=== PATIENT | male | born 1980 | race Hispanic/Latino ===

== ENCOUNTER 2025-07-22 | Inpatient (IN) | payer OTHER ==
[~2025-07-22] VITALS: Ht 175.3 cm; Wt 117.9 kg
[2025-07-22] VITALS (13 sets, daily range): BP systolic 122–166; BP diastolic 33–94; PULSE 68–111; RESP 18–24; TEMP 98–98.7; O2SAT 96–99
[~2025-07-22] MED LIST: AMLO2.5T4 PO; ATOR-2 PO; DAPA5TAB PO; DIPH-1150 PO; LISI40TA15 PO; METF-446 PO; PIOG30TA70 PO; SEMA2PEN SQ
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
--- NOTE | 2025-07-22 00:15 | NUR ---
SEPSIS ALERT CALLED OVERHEAD TO ROOM 1; PT WITH TEMP OF 99.1 AND PULSE OF 117
[2025-07-22 00:38] LABS: CREATININE 1.0 mg/dL (0.5-1.3); GLOMERULAR FILTR. RATE CALC 93.0 mL/min (>90); GLUCOSE,RANDOM 290.0 mg/dL (70-105); SODIUM SERUM 137.0 mmol/L (136-145); UREA NITROGEN, BLOOD 21.0 mg/dL (7-18)
[2025-07-22] MEDS: ALBUTEROL 0.083% 2.5 MG/3 ML INH IH ONE (00:43)
[2025-07-22 01:00] LABS: IMMATURE GRANULOCYTE ABSOLUTE 0.04 K/uL (0-1); NUCLEATED RED BLOOD CELLS 0.0 % (0.0-0.19); PLATELET COUNT (AUTO) 416 K/uL (130-400); RED BLOOD CELL COUNT(AUTO) 4.18 MIL/uL (4.50-6.20); RED CELL DISTRIBUTION WIDTH 13.7 % (11.0-15.5); WHITE BLOOD COUNT (AUTO) 9.6 K/uL (4.8-10.8)
[2025-07-22 01:04] LABS: ABG BASE EXCESS 1.5 mmol/L (-2.0-3.0); ABG HCO3 25.2 mmol/L (21.0-28.0); ABG OXYGEN SATURATION 99.6 % (94.0-98.0); ABG PCO2 37 mmHg (35-48); ABG PH 7.452 (7.350-7.450); DEVICE COMMENT RR 4N; PO2, ARTERIAL BG 253.2 mmHg (83.0-108.0); TEMPERATURE, CELSIUS BG 37.0 CELSIUS (35.5-37.0); VENT MODE, BG NRB (ROOM AIR)
[2025-07-22] MEDS: ASPIRIN 325MG TAB PO ONE (01:17)
--- NOTE | 2025-07-22 01:37 | HMCIMG ---
EXAM: CR Chest, 1 view CLINICAL HISTORY: Shortness of breath. COMPARISON: None provided. FINDINGS: Mild perihilar vascular congestion bilaterally. Mildly blunted bilateral CP angles, concerning for small pleural effusion or pleural thickening. No pneumothorax. The cardiomediastinal silhouette is within normal limits. No acute osseous abnormality. IMPRESSION: Mild perihilar vascular congestion bilaterally. Mildly blunted bilateral CP angles, concerning for small pleural effusion or pleural thickening. /[place]
[2025-07-22] MEDS: AZITHROMYCIN 500MG+NS 250ML 250 ML IVPB STA (01:39)
[2025-07-22 01:57] LABS: APPEARANCE,URINE CLEAR (CLEAR); GLUCOSE, URINE (UA) >=1000 mg/dL (NEGATIVE); LEUKOCYTE ESTERASE ,URINE 25 Leu/uL (NEGATIVE); NITRATE,URINE NEGATIVE (NEGATIVE); OCCULT BLOOD,URINE LARGE (NEGATIVE)
[2025-07-22] MEDS ORDERED: GLUCAGON 1MG KIT 1 MG ML IM PRN (02:00)
[2025-07-22] MEDS ORDERED: LACTULOSE 20 GM/30 ML UDCUP PO PRN (02:00)
[2025-07-22] MEDS ORDERED: DEXTROSE 50%-WATER 50 ML DISP.SYRIN IV PRN (02:00)
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
[2025-07-22 02:20] LABS: INR 0.99 (0.85-1.15)
--- NOTE | 2025-07-22 02:57 | NUR ---
JOSE RAFAEL CAMACHO ([place]) SEEN PT AT BEDSIDE
--- NOTE | 2025-07-22 03:04 | EKG ---
[facility] Test Date: 2025-07-22 Test Time: 00:34:12 Pat Name: ADI MENON Department: [facility] Patient ID: [id number] Room: ED Gender: M Sprue Knocker: [id number] : 1980 Requested By: MATEUS PALMA Order Number: [id number] Reading MD: Oumar Camilo Measurements Intervals [place] Rate: 116 P: 69 ME: 149 QRS: 71 QRSD: 96 T: -38 QT: 339 QTc: 472 Interpretive Statements Sinus tachycardia Nonspecific repol abnormality, diffuse leads No previous ECG available for comparison Electronically Signed On 07-22-2025 13:41:26 CDT by Oumar Camilo Please click the below link to view image of tracing.
[2025-07-22] MEDS ORDERED: NITROGLYCERIN 0.4 MG SL TAB SL PRN (03:30)
[2025-07-22] MEDS ORDERED: BENZONATATE 100 MG CAPSULE PO PRN (03:30)
[2025-07-22] MEDS ORDERED: INSU3INS3 SQ (03:43)
[2025-07-22] MEDS ORDERED: INSU100I35 SQ (03:44)
--- NOTE | 2025-07-22 04:00 | NUR ---
MOVED PT TP ROOM 9, HANDED OVER TO YUNG
[2025-07-22] MEDS ORDERED: IOHEXOL-350 75 ML VIAL IV ONE (06:03)
--- NOTE | 2025-07-22 06:04 | NUR ---
JOSE RAFAEL CAMACHO CALLED ABOUT THE CTA. I HAVE TOLD HIM I HAVE WAITING FOR IT TO BE DONE AND GOT THE CONSENT READY SINCE THEN. APPARENTLY INITIAL ORDER WAS CANCELLED IN THE SYSTEM FOR NO APPARENT REASON. WILL REINFORCED CT, I MADE SLURRY MIXER PRETTY AWARE.
--- NOTE | 2025-07-22 06:15 | NUR ---
AM LABS SENT
[2025-07-22 06:58] LABS: LDL DIRECT 137.0 mg/dL (0-99)
--- NOTE | 2025-07-22 06:59 | HMCIMG ---
EXAM: CTA examination of the chest CLINICAL HISTORY: Contrast information is not available. TECHNIQUE: Thin collimated axial CTA images of the chest were obtained, with sagittal and coronal reformatted images also submitted. A CT scan is done according to ALARA (As Low as Reasonably Achievable). CONTRAST USED: Yes COMPARISON: None provided. FINDINGS: Moderate bilateral pleural effusion with adjacent lung atelectasis. Smooth interlobular septal thickening in the bilateral lower lobes, right middle lobe, and lingula. No lung nodules or mass lesions. No pericardial effusion. The heart size is within normal limits. Diffuse coronary artery calcifications. Mild atherosclerotic calcification of the aortic arch and descending thoracic aorta. No thoracic aortic aneurysm or dissection. No filling defect or pulmonary thromboembolism. No axillary, supraclavicular, or mediastinal lymphadenopathy. No focal thyroid abnormality. Limited views of the upper abdomen demonstrate no abnormality. No acute or suspicious osseous abnormality. IMPRESSION: Normal contrast opacification of the pulmonary vasculature. No obvious evidence of pulmonary embolism. Normal cardiac size. Diffuse coronary artery calcifications. Subtle atherosclerotic calcification of the aortic arch. Moderate bilateral pleural effusion with adjacent lung atelectasis. Smooth interlobular septal thickening in the bilateral lower lobes, right middle lobe, and lingula. No lung nodules or mass lesions. /[place]
--- NOTE | 2025-07-22 07:20 | HMCIMG ---
EXAM: US for Deep Venous Thrombosis, bilateral Lower Extremity. CLINICAL HISTORY: Leg Pain and Swelling TECHNIQUE: Real-time ultrasound scan of the veins of the bilateral lower extremity with color Doppler flow, spectral waveform analysis and compression. COMPARISON: None provided. FINDINGS: DEEP VEINS: The common femoral, superficial femoral, popliteal, and posterior tibial veins are echolucent and compressible. There is normal color Doppler flow throughout. The visualized calf veins appear patent. SOFT TISSUES: No popliteal fossa cyst or other abnormalities. Mild subcutaneous edema in the bilateral lower limbs. IMPRESSION: Subcutaneous edema in the bilateral lower limbs. No deep venous thrombosis is evident on bilateral lower extremity examination. /[place]
--- NOTE | 2025-07-22 08:30 | NUR ---
BLOOD GLUCOSE 154. DID NOT COVER DUE TO PATIENT BEING NPO AND TO AVOID HYPOGLICEMIA.
[2025-07-22 08:39] LABS: IMMATURE GRANULOCYTE ABSOLUTE 0.05 K/uL (0-1); NUCLEATED RED BLOOD CELLS 0.0 % (0.0-0.19); PLATELET COUNT (AUTO) 382 K/uL (130-400); RED BLOOD CELL COUNT(AUTO) 4.05 MIL/uL (4.50-6.20); RED CELL DISTRIBUTION WIDTH 13.8 % (11.0-15.5); WHITE BLOOD COUNT (AUTO) 9.7 K/uL (4.8-10.8)
[2025-07-22 08:52] LABS: INR 1.03 (0.85-1.15)
--- NOTE | 2025-07-22 09:00 | NUR ---
PLACED PATIENT IN A HOSPITAL BED.
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
--- NOTE | 2025-07-22 11:00 | NUR ---
WEIGHTED PATIENT 119.2 KG PER HEPARIN PROTOCOL. DID DOUBLE VERIFICATION AT BEDSIDE WITH MRS. CATHI PUENTE CHARGE NURSE. EDUCATED PATIENT ON NEW MEDICATION. PATIENT AND VERBALIZED UNDERSTANDING.
[2025-07-22] MEDS ORDERED: ALBUMIN (HUMAN) 25% 50 ML IV ONE (11:20)
--- NOTE | 2025-07-22 13:39 | HMCSR ---
APPROVED REPORT EXAM: Two-dimensional and M-mode echocardiogram with Doppler and color Doppler. INDICATION ICD: Non ST-elevation CT I21.4 2D Dimensions RVDd3.6 cmLVEF(%)42.9 (>50%)LVED Vol(simp.)142.5 mL IVSd1.1 (0.7-1.1cm)FS(%)21 %LVES Vol(simp.)80.8 mL LVDd5.4 (3.8-5.6cm)LA (2D)4.0 (1.6-4.0cm)LVEF(%, simp.)43 % PWd1.2 (0.7-1.1cm)Ao Root(2D)2.8 (2.0-3.7cm)LA ESV INDEX (BP)29.74 mL/m2 LVDs4.2 (2.5-4.0cm)LVOT diam2.6 (1.8-2.4cm) IVC diam2.8 cm Deformation Strain Apical 4-13.1 % Apical 2-11.2 % Apical 3-11.1 % Global Strain-11.8 % M-Mode Dimensions EPSS1.1 cm LA (MM)4.3 (1.6-4.0cm) Ao Root(MM)3.2 (2.0-3.7cm) Aortic Valve AoV Vmax1.6 m/Ryann Peak GR10.5 mmHgLVOT Vmax1.1 m/s AoV VTI0.3 mAo Mean GR6.1 mmHgLVOT VTI0.21 m ISSAC (VMAX)3.63 cm2AVA (VTI) 3.6 cm2 Mitral Valve MV E Ldng598.6 cm/sDECEL Rdjt727 ms P 1/2 T55 ms MVA (PHT)4.0 cm2 TDI E/E' Ifexnr99.0E/E' Zdxmxuh01.1 Medial E' Peak V11.75 cm/sLateral E' Peak V8.97 cm/s Pulmonary Valve PV Vmax1.1 m/sPV VTI0.24 mPV Mean GR3.0 mmHg PV Peak GR4.6 mmHg Left Ventricle The left ventricle is normal size. Mild anterior and anteroapical hypokinesis There is normal left ve ntricular wall thickness. LVEF is 45-50% E/A flow is fused. Right Ventricle The right ventricle is normal size. The right ventricular systolic function is normal. Atria The left atrium size is normal. The right atrium size is normal. Aortic Valve The aortic valve is normal in structure. No aortic regurgitation is present. There is no aortic valvu lar stenosis. Mitral Valve The mitral valve is normal in structure. Mitral regurgitation is mild. There is no mitral valve steno sis. Tricuspid Valve The tricuspid valve is normal in structure. There is no tricuspid valve regurgitation noted. Pulmonic Valve The pulmonary valve is normal in structure. There is no pulmonic valvular regurgitation. Great Vessels The aortic root is normal in size. The IVC is normal in size and collapses <50% with inspiration. Pericardium There is no pericardial effusion. Conclusion LVEF is 45-50% Mild anterior and anteroapical hypokinesis The aortic root is normal in size. There is no pericardial effusion.
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
--- NOTE | 2025-07-22 16:28 | NUR ---
VITAL SIGNS BEFORE TRANSFER: BLOOD PRESSURE 146/84 MMHG TEMPERATURE 98.6 PULSE 95 P/MIN OXYGEN SATURATION 95 % WITH NASAL CANULA @3 LITS RESPIRATION 16 P/MIN
[2025-07-22 17:45] LABS: INR 1.01 (0.85-1.15)
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
[2025-07-23] VITALS (14 sets, daily range): BP systolic 148–154; BP diastolic 81–91; PULSE 67–108; RESP 18–20; TEMP 97.1–99.2; O2SAT 92–99
[2025-07-23] MEDS: AZITHROMYCIN 500MG+NS 250ML 250 ML IVPB SCH (04:07)
[2025-07-23 06:18] LABS: IMMATURE GRANULOCYTE ABSOLUTE 0.07 K/uL (0-1); NUCLEATED RED BLOOD CELLS 0.0 % (0.0-0.19); PLATELET COUNT (AUTO) 395 K/uL (130-400); RED BLOOD CELL COUNT(AUTO) 3.77 MIL/uL (4.50-6.20); RED CELL DISTRIBUTION WIDTH 13.7 % (11.0-15.5); WHITE BLOOD COUNT (AUTO) 11.0 K/uL (4.8-10.8)
[2025-07-23 06:31] LABS: CREATININE 0.8 mg/dL (0.5-1.3); GLOMERULAR FILTR. RATE CALC 110.0 mL/min (>90); GLUCOSE,RANDOM 255.0 mg/dL (70-105); PHOSPHORUS 4.3 mg/dL (2.5-4.9); SODIUM SERUM 136.0 mmol/L (136-145); UREA NITROGEN, BLOOD 13.0 mg/dL (7-18)
--- NOTE | 2025-07-23 07:26 | EKG ---
[facility] Test Date: 2025-07-22 Test Time: 16:26:18 Pat Name: ADI MENON Department: [facility] Room: 220 1 Gender: M Applied Researcher: KIN BRIGGS [id number] : 1980 Requested By: JOSE RAFAEL BIGGS Order Number: [id number] Reading MD: Oumar Camilo Measurements Intervals Jay Rate: 98 P: 19 MN: 156 QRS: 49 QRSD: 98 T: -1 QT: 379 QTc: 484 Interpretive Statements Sinus rhythm Compared to ECG 07/22/2025 00:34:12 Sinus tachycardia no longer present Early repolarization no longer present Electronically Signed On 07-23-2025 16:38:00 CDT by Oumar Camilo Please click the below link to view image of tracing.
[2025-07-23] MEDS: ASPIRIN 81MG CHEW TAB PO SCH (09:08)
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
[2025-07-23] MEDS: PoTASSium chloRIDE 20MEQ ER 20 MEQ ERTAB PO ONE (21:07)
[2025-07-24] VITALS (13 sets, daily range): BP systolic 142–159; BP diastolic 77–89; PULSE 93–105; RESP 18–21; TEMP 98.2–100.5; O2SAT 94–97
[2025-07-24 04:50] LABS: IMMATURE GRANULOCYTE ABSOLUTE 0.16 K/uL (0-1); NUCLEATED RED BLOOD CELLS 0.0 % (0.0-0.19); PLATELET COUNT (AUTO) 386 K/uL (130-400); RED BLOOD CELL COUNT(AUTO) 3.70 MIL/uL (4.50-6.20); RED CELL DISTRIBUTION WIDTH 13.7 % (11.0-15.5); WHITE BLOOD COUNT (AUTO) 18.0 K/uL (4.8-10.8)
[2025-07-24 05:08] LABS: CREATININE 1.0 mg/dL (0.5-1.3); GLOMERULAR FILTR. RATE CALC 93.0 mL/min (>90); GLUCOSE,RANDOM 308.0 mg/dL (70-105); SODIUM SERUM 134.0 mmol/L (136-145); UREA NITROGEN, BLOOD 13.0 mg/dL (7-18)
[2025-07-24] MEDS: MAGNESIUM 2GM PREMIX 50ML 50 ML IV PRN (06:16)
[2025-07-24] MEDS ORDERED: NON-FORMULARY MEDICATION 1 EACH (Atorvastatin Calcium 80 MG) PO SCH (09:00)
[2025-07-24] MEDS: amLODIPine 2.5 MG TAB PO SCH (09:09)
[2025-07-24 11:54] LABS: INR 1.04 (0.85-1.15)
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
[2025-07-24] MEDS ORDERED: ZOSYN 3.375GM +NS 50ML IVPB SCH (12:30)
[2025-07-24] MEDS ORDERED: 0.9%NACL 50ML IV SCH (12:30)
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
[2025-07-24] MEDS: ZOSYN 3.375GM +NS 50ML IVPB SCH (13:28)
[2025-07-24 13:37] LABS: RAPID GROUP A STREP negative (NEGATIVE)
[2025-07-24 13:44] LABS: INFLUENZA TYPE A Negative For Type A (NEGATIVE); INFLUENZA TYPE B Negative For Type B (NEGATIVE)
[2025-07-24] MEDS: SODIUM CHLORIDE 3% FOR INHALATION 4 ML/AMP VIAL.NEB IH ONE ×2 (14:23→20:01)
[2025-07-24] MEDS: PoTASSium chloRIDE 20MEQ ER 20 MEQ ERTAB PO PRN (20:24)
[2025-07-25] VITALS (8 sets, daily range): BP systolic 118–142; BP diastolic 65–97; PULSE 83–98; RESP 20–21; TEMP 97–99.6; O2SAT 93–96
[2025-07-25 04:37] LABS: IMMATURE GRANULOCYTE ABSOLUTE 0.19 K/uL (0-1); NUCLEATED RED BLOOD CELLS 0.0 % (0.0-0.19); PLATELET COUNT (AUTO) 394 K/uL (130-400); RED BLOOD CELL COUNT(AUTO) 3.34 MIL/uL (4.50-6.20); RED CELL DISTRIBUTION WIDTH 13.6 % (11.0-15.5); WHITE BLOOD COUNT (AUTO) 17.5 K/uL (4.8-10.8)
[2025-07-25 05:08] LABS: CREATININE 0.9 mg/dL (0.5-1.3); GLOMERULAR FILTR. RATE CALC 106.0 mL/min (>90); GLUCOSE,RANDOM 135.0 mg/dL (70-105); SODIUM SERUM 135.0 mmol/L (136-145); UREA NITROGEN, BLOOD 16.0 mg/dL (7-18)
--- NOTE | 2025-07-25 06:46 | HMCIMG ---
EXAM: CR Chest, 1 view CLINICAL HISTORY: Shortness of breath, pleural effusions. COMPARISON: 07/22/2025 FINDINGS: Mild perihilar vascular congestion bilaterally. Mildly blunted bilateral CP angles, concerning for small pleural effusion or pleural thickening. No pneumothorax. The cardiomediastinal silhouette is within normal limits. No acute osseous abnormality. IMPRESSION: Mild perihilar vascular congestion bilaterally. Mildly blunted bilateral CP angles, concerning for small pleural effusion or pleural thickening. Compared to the prior chest radiograph dated 07/22/2025, there is a mild decrease in bilateral pulmonary vascular congestion. /[place]
--- NOTE | 2025-07-25 08:31 | PN ---
PROGRESS NOTE PROBLEM LIST: Unstable angina Acute combined congestive heart failure moderate present on admission Diabetes mellitus Dyslipidemia Hypertension Probable community-acquired pneumonia presenting with febrile state Leukocytosis Hypokalemia INTERIM HISTORY OF PRESENT ILLNESS: Patient has been diuresed quite nicely states he is feeling better and breathing better. He has remained on IV antibiotics. At this time he has agreed to proceed with coronary angiography and we will try and get that scheduled for tomorrow. Depends on febrile state. Patient still has a mild leukocytosis. Patient is slightly hypokalemic. REVIEW OF SYSTEMS: No fever, headache, chest pain, abdominal pain, nausea, vomiting, or diarrhea. VITAL SIGNS Vital Signs Date Time Temp Pulse Resp B/P (MAP) Pulse Ox O2 Delivery O2 Flow Rate FiO2 07/25/25 07:00 98.2 88 20 131/74 92 Room Air 07/24/25 20:01 21 07/24/25 20:00 0 Laboratory Tests 07/25/25 03:39 LABS/MEDS Laboratory Tests Test 07/24/25 11:04 07/24/25 11:39 07/24/25 12:42 07/24/25 16:03 Whole Blood Glucose 313 MG/DL (70-110) H 226 MG/DL (70-110) H Prothrombin Time 11.0 SEC (9.6-11.6) Prothromb Time International Ratio 1.04 (0.85-1.15) Activated Partial Thromboplast Time 45.1 SEC (26.3-35.5) H Influenza Type A Antigen Negative For Type A Influenza Type B Antigen Negative For Type B Group A Streptococcus Rapid negative (NEGATIVE) Test 07/24/25 19:17 07/25/25 03:39 07/25/25 05:14 Whole Blood Glucose 323 MG/DL (70-110) H 143 MG/DL (70-110) #H Bedside Glucose Comment Notified Nurse White Blood Count 17.5 K/uL (4.8-10.8) H Red Blood Count 3.34 MIL/uL (4.50-6.20) L Hemoglobin 9.2 g/dL (14.0-18.0) L Hematocrit 27.6 % (42-54) L Mean Corpuscular Volume 82.6 fL (79-99) Mean Corpuscular Hemoglobin 27.5 pg (27.0-33.0) Mean Corpuscular Hemoglobin Concent 33.3 g/dL (32.0-36.0) Red Cell Distribution Width 13.6 % (11.0-15.5) Platelet Count 394 K/uL (130-400) Mean Platelet Volume 8.9 fL (7.5-10.5) Immature Granulocyte % (Auto) 1.1 % (0-1) H Neutrophils (%) (Auto) 77.4 % (40.0-77.0) H Lymphocytes (%) (Auto) 12.4 % (21.0-51.0) L Monocytes (%) (Auto) 7.4 % (3.0-13.0) Eosinophils (%) (Auto) 1.3 % (0.0-8.0) Basophils (%) (Auto) 0.4 % (0.0-5.0) Neutrophils # (Auto) 13.5 K/uL (1.8-7.7) H Lymphocytes # (Auto) 2.2 K/uL (1.0-4.8) Monocytes # (Auto) 1.3 K/uL (0.1-1.0) H Eosinophils # (Auto) 0.23 K/uL (0.00-0.70) Basophils # (Auto) 0.07 K/uL (0.00-0.20) Absolute Immature Granulocyte (auto 0.19 K/uL (0-1) Nucleated Red Blood Cells 0.0 % (0.0-0.19) Sodium Level 135 mmol/L (136-145) L Potassium Level 3.1 mmol/L (3.5-5.1) L Chloride Level 100 mmol/L (101-111) L Carbon Dioxide Level 30 mmol/L (21-32) Blood Urea Nitrogen 16 mg/dL (7-18) Creatinine 0.9 mg/dL (0.5-1.3) Glomerular Filtration Rate Calc 106 mL/min (>90) Random Glucose 135 mg/dL (70-105) #H Total Calcium 8.1 mg/dL (8.5-10.1) L Magnesium Level 1.90 mg/dL (1.80-2.40) Current Medications Albuterol Sulfate 1 mg ONCE ONCE IH Last administered on 07/22/25at 00:43; Start 07/22/25 at 00:30; Stop 07/22/25 at 00:31; Status DC Potassium Bicarbonate 25 meq ONCE ONCE PO Last administered on 07/22/25at 01:17; Start 07/22/25 at 01:00; Stop 07/22/25 at 01:01; Status DC Aspirin 325 mg ONCE ONCE PO Last administered on 07/22/25at 01:17; Start 07/22/25 at 01:30; Stop 07/22/25 at 01:31; Status DC Ceftriaxone Sodium 2 gm ONCE ONCE IVPB Last administered on 07/22/25at 01:39; Start 07/22/25 at 01:30; Stop 07/22/25 at 01:34; Status DC Azithromycin 250 ml @ 250 mls/hr ONCE STAT IVPB Last administered on 07/22/25at 01:39; Start 07/22/25 at 01:28; Stop 07/22/25 at 02:27; Status DC Dextrose 50 ml AD PRN IV; Start 07/22/25 at 02:00; Stop 08/21/25 at 01:59 Glucagon 1 mg AD PRN IM; Start 07/22/25 at 02:00; Stop 08/21/25 at 01:59 Insulin Human Regular INSULIN SLIDING SCAL... ACHS SQ Last administered on 07/23/25at 07:31; Start 07/22/25 at 07:30; Stop 07/23/25 at 11:28; Status DC Potassium Chloride 100 ml @ 50 mls/hr AD PRN IV Last administered on 07/23/25at 07:30; Start 07/22/25 at 02:00; Stop 08/21/25 at 01:59 Magnesium Sulfate 50 ml @ 0 mls/hr PROTOCOL PRN IV Last administered on 07/25/25at 05:48; Start 07/22/25 at 02:00; Stop 08/21/25 at 01:59 Acetaminophen 650 mg Q6H PRN PO; Start 07/22/25 at 02:00; Stop 08/21/25 at 01:59 Lactulose 20 gm Q6H PRN PO; Start 07/22/25 at 02:00; Stop 08/21/25 at 01:59 Ondansetron HCl 4 mg Q6H PRN IVP; Start 07/22/25 at 02:00; Stop 08/21/25 at 01:59 Clonidine HCl 0.1 mg Q6H PRN PO; Start 07/22/25 at 02:00; Stop 08/21/25 at 01:59 Labetalol HCl 10 mg Q2H PRN IV; Start 07/22/25 at 02:00; Stop 08/21/25 at 01:59 Furosemide 20 mg ONCE ONCE IV Last administered on 07/22/25at 03:01; Start 07/22/25 at 03:00; Stop 07/22/25 at 03:01; Status DC Benzonatate 100 mg Q8H PRN PO; Start 07/22/25 at 03:30; Stop 08/21/25 at 03:29 Nitroglycerin 0.4 mg AD PRN SL; Start 07/22/25 at 03:30; Stop 08/21/25 at 03:29 Albuterol 1 udvial [id number] IH Last administered on 07/23/25at 18:38; Start 07/22/25 at 06:00; Stop 07/23/25 at 23:00; Status DC Ceftriaxone Sodium 2 gm Q24H IVPB Last administered on 07/24/25at 02:08; Start 07/23/25 at 02:00; Stop 07/24/25 at 12:27; Status DC Azithromycin 250 ml @ 250 mls/hr Q24H IVPB Last administered on 07/25/25at 02:37; Start 07/23/25 at 02:00; Stop 08/02/25 at 01:59 Metoprolol Tartrate 12.5 mg BID PO Last administered on 07/23/25at 09:08; Start 07/22/25 at 03:30; Stop 07/23/25 at 12:00; Status DC Atorvastatin Calcium 80 mg HS PO Last administered on 07/24/25at 20:23; Start 07/22/25 at 03:30; Stop 08/21/25 at 03:29 Furosemide 20 mg DAILY IV; Start 07/23/25 at 09:00; Stop 07/22/25 at 07:47; Status DC Aspirin 81 mg DAILY PO Last administered on 07/24/25at 09:09; Start 07/23/25 at 09:00; Stop 08/22/25 at 08:59 Iohexol 75 ml STK-MED ONCE IV; Start 07/22/25 at 06:03; Stop 07/22/25 at 06:04; Status DC Heparin Sodium/ Dextrose 250 ml @ 0 mls/hr PROTOCOL IV Last administered on 07/24/25at 02:09; Start 07/22/25 at 07:30; Stop 07/24/25 at 12:33; Status DC Furosemide 20 mg BID IV Last administered on 07/24/25at 20:24; Start 07/22/25 at 09:00; Stop 08/22/25 at 08:59 Heparin Sodium (Porcine) 5,000 unit STK-MED ONCE .ROUTE; Start 07/22/25 at 10:44; Stop 07/22/25 at 10:44; Status DC Heparin Sodium (Porcine) 4,000 unit ONCE ONCE IV Last administered on 07/23/25at 00:07; Start 07/22/25 at 23:30; Stop 07/22/25 at 23:36; Status DC Amlodipine Besylate 2.5 mg DAILY PO Last administered on 07/24/25at 09:09; Start 07/24/25 at 09:00; Stop 08/23/25 at 08:59 Miscellaneous Medication 80 mg DAILY PO; Start 07/24/25 at 09:00; Stop 07/23/25 at 11:30; Status DC Insulin Glargine 20 units HS SQ Last administered on 07/24/25at 20:27; Start 07/23/25 at 21:00; Stop 08/22/25 at 20:59 Insulin Human Isoph/Insulin Regular 20 unit BIDAC SQ Last administered on 07/25/25at 05:45; Start 07/23/25 at 16:30; Stop 08/22/25 at 16:29 Metoprolol Tartrate 25 mg BID PO Last administered on 07/24/25at 20:23; Start 07/23/25 at 21:00; Stop 08/22/25 at 20:59 Metoprolol Tartrate 12.5 mg ONCE ONCE PO Last administered on 07/23/25at 13:03; Start 07/23/25 at 12:00; Stop 07/23/25 at 12:08; Status DC Pantoprazole Sodium 40 mg DAILY IVP Last administered on 07/24/25at 09:09; Start 07/24/25 at 09:00; Stop 08/23/25 at 08:59 Potassium Chloride 20 meq STK-MED ONCE PO Last administered on 07/23/25at 21:07; Start 07/23/25 at 20:56; Stop 07/23/25 at 20:57; Status DC Insulin Human Regular INSULIN SLIDING SCAL... Q6H6 SQ Last administered on 07/24/25at 20:26; Start 07/24/25 at 00:00; Stop 08/23/25 at 00:00 Potassium Chloride 20 meq AD PRN PO; Start 07/23/25 at 21:30; Stop 08/22/25 at 21:29 Potassium Chloride 20 meq AD PRN PO Last administered on 07/25/25at 06:46; Start 07/23/25 at 21:30; Stop 08/22/25 at 21:29 Piperacillin Sod/ Tazobactam Sod 3.375 gm Q8H IVPB; Start 07/24/25 at 12:30; Stop 07/24/25 at 12:41; Status DC Sodium Chloride 50 ml AD IV; Start 07/24/25 at 12:30; Stop 07/24/25 at 12:37; Status DC Enoxaparin Sodium 40 mg DAILY SQ; Start 07/25/25 at 09:00; Stop 08/24/25 at 08:59 Piperacillin Sod/ Tazobactam Sod 3.375 gm Q8H IVPB Last administered on 07/25/25at 03:59; Start 07/24/25 at 13:00; Stop 08/03/25 at 12:59 Sodium Chloride 4 ml STK-MED ONCE IH Last administered on 07/24/25at 14:23; Start 07/24/25 at 13:43; Stop 07/24/25 at 13:44; Status DC Sodium Chloride 4 ml STK-MED ONCE IH Last administered on 07/24/25at 20:01; Start 07/24/25 at 18:07; Stop 07/24/25 at 18:07; Status DC PHYSICAL EXAMINATION: GENERAL: No acute distress. HEENT: Normocephalic, atraumatic. CARDIAC: Positive S1 and S2. No murmurs. LUNGS: Clear to auscultation bilaterally. ABDOMEN: Bowel sounds present, soft, nontender. EXTREMITIES: No edema bilaterally. NEUROLOGIC: Cranial nerves 2-12 grossly intact. PSYCHIATRIC: Calm. TELEMETRY: Sinus rhythm ASSESSMENT: Unstable angina Community-acquired pneumonia Acute combined congestive heart failure Hypokalemia PLAN: Repletion for potassium we will be ordered. We will schedule patient for coronary angiography tomorrow pending on underlying febrile illness and leukocytosis. This has been explained to the patient. Risks and goals of procedure have been discussed with the patient include but not limited to stroke heart attack need for emergent surgery need for emergent vascular repair. All questions have been answered. Further recommendations to follow pending results of angiogram. BLU MAYNARD MD Jul 25, 2025 08:31
[2025-07-25] MEDS ORDERED: 0.9% NACL 500ML IV.SOLN 500 ML IV SCH (09:00)
[2025-07-25] MEDS: PoTASSium chl 10% ELIXIR 20MEQ 20 MEQ/15 ML UDCUP PO SCH (10:07)
[2025-07-25] MEDS: ENOXAPARIN SODIUM 40 MG/0.4 ML SYRINGE SQ SCH (10:09)
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
[2025-07-25 17:11] LABS: CHLAM.PNEUMONIAE IGM TITER <1:10 (Neg:<1:10)
[2025-07-25] MEDS: PoTASSium chl 10% ELIXIR 20MEQ 20 MEQ/15 ML UDCUP PO PRN (17:56)
[2025-07-26] VITALS (14 sets, daily range): BP systolic 126–158; BP diastolic 72–94; PULSE 64–102; RESP 16–19; TEMP 97.9–98.9; O2SAT 96–97
[2025-07-26 03:57] LABS: IMMATURE GRANULOCYTE ABSOLUTE 0.13 K/uL (0-1); NUCLEATED RED BLOOD CELLS 0.0 % (0.0-0.19); PLATELET COUNT (AUTO) 461 K/uL (130-400); RED BLOOD CELL COUNT(AUTO) 3.41 MIL/uL (4.50-6.20); RED CELL DISTRIBUTION WIDTH 13.7 % (11.0-15.5); WHITE BLOOD COUNT (AUTO) 12.4 K/uL (4.8-10.8)
[2025-07-26 04:19] LABS: CREATININE 0.9 mg/dL (0.5-1.3); GLOMERULAR FILTR. RATE CALC 106.0 mL/min (>90); GLUCOSE,RANDOM 160.0 mg/dL (70-105); SODIUM SERUM 137.0 mmol/L (136-145); UREA NITROGEN, BLOOD 13.0 mg/dL (7-18)
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
[2025-07-26] MEDS ORDERED: IOHEXOL 350 MG/ML 100ML INFUS..BTL IV ONE (14:31)
[2025-07-26] MEDS ORDERED: NITROGLYCERIN 50MG VIAL ONE (14:31)
[2025-07-26] MEDS ORDERED: LIDOCAINE HCL 400MG/20ML VIAL ONE (14:31)
[2025-07-26] MEDS ORDERED: MIDAZOLAM HCL 1 MG/ML 2ML VIAL ONE (14:54)
--- NOTE | 2025-07-26 15:40 | PN ---
PROGRESS NOTE PROBLEM LIST: Unstable angina Acute combined congestive heart failure moderate present on admission Diabetes mellitus Dyslipidemia Hypertension Probable community-acquired pneumonia presenting with febrile state Leukocytosis INTERIM HISTORY OF PRESENT ILLNESS: Patient was evaluated prior to catheterization performed earlier today. Patient's coronary angiogram unfortunately reveals left main and three-vessel disease. Patient is also still slightly hypertensive. Patient is also slightly anemic from a numerous blood draws. Patient did have low-grade temperature last night. REVIEW OF SYSTEMS: No fever, headache, chest pain, abdominal pain, nausea, vomiting, or diarrhea. VITAL SIGNS Vital Signs Date Time Temp Pulse Resp B/P (MAP) Pulse Ox O2 Delivery O2 Flow Rate FiO2 07/26/25 15:01 96 Room Air* 0 21 07/26/25 11:40 98.1 64 18 130/78 Laboratory Tests 07/25/25 17:06 07/26/25 03:44 LABS/MEDS Laboratory Tests Test 07/25/25 15:47 07/25/25 17:06 07/25/25 23:35 07/26/25 03:44 Whole Blood Glucose 190 MG/DL (70-110) H 226 MG/DL (70-110) H Bedside Glucose Comment Notified Nurse Potassium Level 3.8 mmol/L (3.5-5.1) 3.7 mmol/L (3.5-5.1) Magnesium Level 2.10 mg/dL (1.80-2.40) 2.00 mg/dL (1.80-2.40) White Blood Count 12.4 K/uL (4.8-10.8) H Red Blood Count 3.41 MIL/uL (4.50-6.20) L Hemoglobin 9.2 g/dL (14.0-18.0) L Hematocrit 27.9 % (42-54) L Mean Corpuscular Volume 81.8 fL (79-99) Mean Corpuscular Hemoglobin 27.0 pg (27.0-33.0) Mean Corpuscular Hemoglobin Concent 33.0 g/dL (32.0-36.0) Red Cell Distribution Width 13.7 % (11.0-15.5) Platelet Count 461 K/uL (130-400) H Mean Platelet Volume 8.9 fL (7.5-10.5) Immature Granulocyte % (Auto) 1.0 % (0-1) Neutrophils (%) (Auto) 73.2 % (40.0-77.0) Lymphocytes (%) (Auto) 14.3 % (21.0-51.0) L Monocytes (%) (Auto) 7.3 % (3.0-13.0) Eosinophils (%) (Auto) 3.7 % (0.0-8.0) Basophils (%) (Auto) 0.5 % (0.0-5.0) Neutrophils # (Auto) 9.1 K/uL (1.8-7.7) H Lymphocytes # (Auto) 1.8 K/uL (1.0-4.8) Monocytes # (Auto) 0.9 K/uL (0.1-1.0) Eosinophils # (Auto) 0.46 K/uL (0.00-0.70) Basophils # (Auto) 0.06 K/uL (0.00-0.20) Absolute Immature Granulocyte (auto 0.13 K/uL (0-1) Nucleated Red Blood Cells 0.0 % (0.0-0.19) Sodium Level 137 mmol/L (136-145) Chloride Level 102 mmol/L (101-111) Carbon Dioxide Level 30 mmol/L (21-32) Blood Urea Nitrogen 13 mg/dL (7-18) Creatinine 0.9 mg/dL (0.5-1.3) Glomerular Filtration Rate Calc 106 mL/min (>90) Random Glucose 160 mg/dL (70-105) H Total Calcium 7.8 mg/dL (8.5-10.1) L Test 07/26/25 06:19 07/26/25 11:57 Whole Blood Glucose 144 MG/DL (70-110) H 158 MG/DL (70-110) H Current Medications Albuterol Sulfate 1 mg ONCE ONCE IH Last administered on 07/22/25at 00:43; Start 07/22/25 at 00:30; Stop 07/22/25 at 00:31; Status DC Potassium Bicarbonate 25 meq ONCE ONCE PO Last administered on 07/22/25at 01:17; Start 07/22/25 at 01:00; Stop 07/22/25 at 01:01; Status DC Aspirin 325 mg ONCE ONCE PO Last administered on 07/22/25at 01:17; Start 07/22/25 at 01:30; Stop 07/22/25 at 01:31; Status DC Ceftriaxone Sodium 2 gm ONCE ONCE IVPB Last administered on 07/22/25at 01:39; Start 07/22/25 at 01:30; Stop 07/22/25 at 01:34; Status DC Azithromycin 250 ml @ 250 mls/hr ONCE STAT IVPB Last administered on 07/22/25at 01:39; Start 07/22/25 at 01:28; Stop 07/22/25 at 02:27; Status DC Dextrose 50 ml AD PRN IV; Start 07/22/25 at 02:00; Stop 08/21/25 at 01:59 Glucagon 1 mg AD PRN IM; Start 07/22/25 at 02:00; Stop 08/21/25 at 01:59 Insulin Human Regular INSULIN SLIDING SCAL... ACHS SQ Last administered on 07/23/25at 07:31; Start 07/22/25 at 07:30; Stop 07/23/25 at 11:28; Status DC Potassium Chloride 100 ml @ 50 mls/hr AD PRN IV Last administered on 07/23/25at 07:30; Start 07/22/25 at 02:00; Stop 08/21/25 at 01:59 Magnesium Sulfate 50 ml @ 0 mls/hr PROTOCOL PRN IV Last administered on 07/25/25at 05:48; Start 07/22/25 at 02:00; Stop 08/21/25 at 01:59 Acetaminophen 650 mg Q6H PRN PO; Start 07/22/25 at 02:00; Stop 08/21/25 at 01:59 Lactulose 20 gm Q6H PRN PO; Start 07/22/25 at 02:00; Stop 08/21/25 at 01:59 Ondansetron HCl 4 mg Q6H PRN IVP; Start 07/22/25 at 02:00; Stop 08/21/25 at 01:59 Clonidine HCl 0.1 mg Q6H PRN PO; Start 07/22/25 at 02:00; Stop 08/21/25 at 01:59 Labetalol HCl 10 mg Q2H PRN IV; Start 07/22/25 at 02:00; Stop 08/21/25 at 01:59 Furosemide 20 mg ONCE ONCE IV Last administered on 07/22/25at 03:01; Start 07/22/25 at 03:00; Stop 07/22/25 at 03:01; Status DC Benzonatate 100 mg Q8H PRN PO; Start 07/22/25 at 03:30; Stop 08/21/25 at 03:29 Nitroglycerin 0.4 mg AD PRN SL; Start 07/22/25 at 03:30; Stop 08/21/25 at 03:29 Albuterol 1 udvial [id number] IH Last administered on 07/23/25at 18:38; Start 07/22/25 at 06:00; Stop 07/23/25 at 23:00; Status DC Ceftriaxone Sodium 2 gm Q24H IVPB Last administered on 07/24/25at 02:08; Start 07/23/25 at 02:00; Stop 07/24/25 at 12:27; Status DC Azithromycin 250 ml @ 250 mls/hr Q24H IVPB Last administered on 07/26/25at 02:37; Start 07/23/25 at 02:00; Stop 08/02/25 at 01:59 Metoprolol Tartrate 12.5 mg BID PO Last administered on 07/23/25at 09:08; Start 07/22/25 at 03:30; Stop 07/23/25 at 12:00; Status DC Atorvastatin Calcium 80 mg HS PO Last administered on 07/25/25at 20:51; Start 07/22/25 at 03:30; Stop 08/21/25 at 03:29 Furosemide 20 mg DAILY IV; Start 07/23/25 at 09:00; Stop 07/22/25 at 07:47; Status DC Aspirin 81 mg DAILY PO Last administered on 07/26/25at 08:44; Start 07/23/25 at 09:00; Stop 08/22/25 at 08:59 Iohexol 75 ml STK-MED ONCE IV; Start 07/22/25 at 06:03; Stop 07/22/25 at 06:04; Status DC Heparin Sodium/ Dextrose 250 ml @ 0 mls/hr PROTOCOL IV Last administered on 07/24/25at 02:09; Start 07/22/25 at 07:30; Stop 07/24/25 at 12:33; Status DC Furosemide 20 mg BID IV Last administered on 07/24/25at 20:24; Start 07/22/25 at 09:00; Stop 07/25/25 at 08:23; Status DC Heparin Sodium (Porcine) 5,000 unit STK-MED ONCE .ROUTE; Start 07/22/25 at 10:44; Stop 07/22/25 at 10:44; Status DC Heparin Sodium (Porcine) 4,000 unit ONCE ONCE IV Last administered on 07/23/25at 00:07; Start 07/22/25 at 23:30; Stop 07/22/25 at 23:36; Status DC Amlodipine Besylate 2.5 mg DAILY PO Last administered on 07/26/25at 08:45; Start 07/24/25 at 09:00; Stop 08/23/25 at 08:59 Miscellaneous Medication 80 mg DAILY PO; Start 07/24/25 at 09:00; Stop 07/23/25 at 11:30; Status DC Insulin Glargine 20 units HS SQ Last administered on 07/25/25at 22:00; Start 07/23/25 at 21:00; Stop 08/22/25 at 20:59 Insulin Human Isoph/Insulin Regular 20 unit BIDAC SQ Last administered on 07/26/25at 07:14; Start 07/23/25 at 16:30; Stop 08/22/25 at 16:29 Metoprolol Tartrate 25 mg BID PO Last administered on 07/24/25at 20:23; Start 07/23/25 at 21:00; Stop 07/25/25 at 08:28; Status DC Metoprolol Tartrate 12.5 mg ONCE ONCE PO Last administered on 07/23/25at 13:03; Start 07/23/25 at 12:00; Stop 07/23/25 at 12:08; Status DC Pantoprazole Sodium 40 mg DAILY IVP Last administered on 07/26/25at 08:45; Start 07/24/25 at 09:00; Stop 08/23/25 at 08:59 Potassium Chloride 20 meq STK-MED ONCE PO Last administered on 07/23/25at 21:07; Start 07/23/25 at 20:56; Stop 07/23/25 at 20:57; Status DC Insulin Human Regular INSULIN SLIDING SCAL... Q6H6 SQ Last administered on 07/26/25at 00:29; Start 07/24/25 at 00:00; Stop 08/23/25 at 00:00 Potassium Chloride 20 meq AD PRN PO Last administered on 07/26/25at 07:13; Start 07/23/25 at 21:30; Stop 08/22/25 at 21:29 Potassium Chloride 20 meq AD PRN PO Last administered on 07/26/25at 08:48; Start 07/23/25 at 21:30; Stop 08/22/25 at 21:29 Piperacillin Sod/ Tazobactam Sod 3.375 gm Q8H IVPB; Start 07/24/25 at 12:30; Stop 07/24/25 at 12:41; Status DC Sodium Chloride 50 ml AD IV; Start 07/24/25 at 12:30; Stop 07/24/25 at 12:37; Status DC Enoxaparin Sodium 40 mg DAILY SQ Last administered on 07/25/25at 10:09; Start 07/25/25 at 09:00; Stop 08/24/25 at 08:59 Piperacillin Sod/ Tazobactam Sod 3.375 gm Q8H IVPB Last administered on 07/26/25at 13:45; Start 07/24/25 at 13:00; Stop 08/03/25 at 12:59 Sodium Chloride 4 ml STK-MED ONCE IH Last administered on 07/24/25at 14:23; Start 07/24/25 at 13:43; Stop 07/24/25 at 13:44; Status DC Sodium Chloride 4 ml STK-MED ONCE IH Last administered on 07/24/25at 20:01; Start 07/24/25 at 18:07; Stop 07/24/25 at 18:07; Status DC Furosemide 40 mg DAILY PO Last administered on 07/26/25at 08:45; Start 07/25/25 at 09:00; Stop 08/24/25 at 08:59 Losartan Potassium 50 mg DAILY PO Last administered on 07/26/25at 08:45; Start 07/25/25 at 09:00; Stop 08/24/25 at 08:59 Potassium Chloride 20 meq Q3H3 PO Last administered on 07/25/25at 12:05; Start 07/25/25 at 09:00; Stop 07/25/25 at 15:00; Status DC Metoprolol Tartrate 50 mg BID PO Last administered on 07/26/25at 08:45; Start 07/25/25 at 09:00; Stop 08/24/25 at 08:59 Sodium Chloride 500 ml @ 0 mls/hr Q0M IV; Start 07/25/25 at 09:00; Stop 08/24/25 at 08:59 Lidocaine HCl 20 ml STK-MED ONCE .ROUTE; Start 07/26/25 at 14:31; Stop 07/26/25 at 14:31; Status DC Iohexol 35,000 mg STK-MED ONCE IV; Start 07/26/25 at 14:31; Stop 07/26/25 at 14:31; Status DC Heparin Sodium (Porcine) 10,000 unit STK-MED ONCE .ROUTE; Start 07/26/25 at 14:31; Stop 07/26/25 at 14:31; Status DC Heparin Sodium/ Sodium Chloride 1,000 ml @ As Directed STK-MED ONCE IV; Start 07/26/25 at 14:31; Stop 07/26/25 at 14:31; Status DC Nitroglycerin 50 mg STK-MED ONCE .ROUTE; Start 07/26/25 at 14:31; Stop 07/26/25 at 14:31; Status DC Fentanyl Citrate 100 mcg STK-MED ONCE .ROUTE; Start 07/26/25 at 14:54; Stop 07/26/25 at 14:54; Status DC Midazolam HCl 2 mg STK-MED ONCE .ROUTE; Start 07/26/25 at 14:54; Stop 07/26/25 at 14:54; Status DC Sodium Chloride 1,000 ml @ 100 mls/hr Q10H IV; Start 07/26/25 at 16:00; Stop 07/26/25 at 18:59; Status UNV PHYSICAL EXAMINATION: GENERAL: No acute distress. HEENT: Normocephalic, atraumatic. CARDIAC: Positive S1 and S2. No murmurs. LUNGS: Clear to auscultation bilaterally. ABDOMEN: Bowel sounds present, soft, nontender. EXTREMITIES: No edema bilaterally. NEUROLOGIC: Cranial nerves 2-12 grossly intact. PSYCHIATRIC: Calm. TELEMETRY: Sinus rhythm ASSESSMENT: Left main and three-vessel disease See above PLAN: We will optimize guideline directed medical therapy. We will consult CT surgery for timing regarding surgical revascularization for left main and three-vessel disease Continue to follow closely Continue on telemetry BLU MAYNARD MD Jul 26, 2025 15:40
--- NOTE | 2025-07-26 15:44 | PRN ---
Left Heart Cath-[facility] PROCEDURE: 1. Right common femoral arterial sheath placement. 2. Selective coronary angiogram. 3. Left heart catheterization. 4. Left ventriculogram. 5. Conscious sedation INDICATIONS: Unstable angina DESCRIPTION OF PROCEDURE: The patient was brought to the catheterization suite and prepped and draped in sterile fashion. An IV was started, if not already in place and both groins were exposed for arterial access. 1% lidocaine was used for local anesthesia and then a micropuncture kit was used to gain access and once free-flowing blood was seen, modified Seldinger technique was utilized to place a 6 [place] sheath into the right common femoral artery. Next, preformed JL4 and JR4 Catheters were then used to selectively engage the mentasta coronary vessels and multiple hand contrast injections were performed in different views to define the coronary anatomy. The JR4 catheter was also used to selectively engage the left subclavian artery and a contrast injection was performed of this vessel as well to demonstrate patency of left subclavian artery as well as patency of MORENO as an arterial conduit for revascularization Next, a 6 [place] angled pigtail catheter was used to cross the aortic valve. Pressure measurements were obtained and a left ventriculogram was in the 30 CHAMBERS position. Next, pullback method was performed. At the end of the case, a sheath shot was performed and a Mynx device was used for closure of arteriotomy site. FINDINGS: The left main artery trifurcates into the LAD, ramus intermediate, and left circumflex and has a 40-50% distal stenosis present which is eccentric. This is a calcified vessel. The left anterior descending artery in its proximal segment is calcified as well as its mid segment with no stenosis present at until after diagonal branch 1. And where there was a 75-80 calcified complex lesion present. The left circumflex artery in its ostium has a 99% stenosis followed by an 85% stenosis noted in a relatively large obtuse marginal branch 1. This is a nondominant circumflex system. The ramus intermediate is a moderate size vessel which bifurcates distally and is free of any significant disease. The right coronary artery is a calcified vessel with diffuse disease noted in its proximal mid segment totally comes to an occluded portion in the mid segment with the distal vessel filling with [id number] and [id number] collaterals. Is still give rise to the PDA and RPL which are patent. Ejection fraction was approximately 45% with inferior wall hypokinesis noted in 30 CHAMBERS view. LVEDP is significantly elevated at 31 mm of mercury. There was no evidence of aortic stenosis or mitral regurgitation RECOMMENDATIONS: Optimize guideline directed medical therapy Consult CT surgery for timing of surgical revascularization BLU CAMILO MD Jul 26, 2025 15:44
[2025-07-26] MEDS: 0.9%NACL 1000ML 1,000 ML IV SCH (16:53)
[2025-07-27] VITALS (9 sets, daily range): BP systolic 125–145; BP diastolic 58–96; PULSE 79–95; RESP 16–18; TEMP 97.6–98.5; O2SAT 97–98
[2025-07-27 00:31] LABS: ABG BASE EXCESS 2.8 mmol/L (-2.0-3.0); ABG HCO3 24.6 mmol/L (21.0-28.0); ABG OXYGEN SATURATION 97.2 % (94.0-98.0); ABG PCO2 30 mmHg (35-48); ABG PH 7.527 (7.350-7.450); DEVICE COMMENT TELE RN, RB; PO2, ARTERIAL BG 81.9 mmHg (83.0-108.0); TEMPERATURE, CELSIUS BG 37.0 CELSIUS (35.5-37.0); VENT MODE, BG RA (ROOM AIR)
[2025-07-27 04:36] LABS: IMMATURE GRANULOCYTE ABSOLUTE 0.06 K/uL (0-1); NUCLEATED RED BLOOD CELLS 0.0 % (0.0-0.19); PLATELET COUNT (AUTO) 522 K/uL (130-400); RED BLOOD CELL COUNT(AUTO) 3.64 MIL/uL (4.50-6.20); RED CELL DISTRIBUTION WIDTH 13.7 % (11.0-15.5); WHITE BLOOD COUNT (AUTO) 10.1 K/uL (4.8-10.8)
[2025-07-27 04:44] LABS: CREATININE 1.0 mg/dL (0.5-1.3); GLOMERULAR FILTR. RATE CALC 93.0 mL/min (>90); GLUCOSE,RANDOM 274.0 mg/dL (70-105); SODIUM SERUM 137.0 mmol/L (136-145); UREA NITROGEN, BLOOD 18.0 mg/dL (7-18)
--- NOTE | 2025-07-27 07:10 | HMCIMG ---
EXAM: CR Chest, single view. CLINICAL HISTORY: Pulmonary edema. COMPARISON: Prior chest radiograph dated July 24, 2025. FINDINGS: The lungs show no infiltrate or other acute findings. No pleural effusion or pneumothorax. The cardiomediastinal silhouette is within normal limits. Mild bilateral pulmonary congestion. No acute osseous abnormality. IMPRESSION: No acute cardiopulmonary pathology is evident. Mild bilateral pulmonary congestion. Compared to the prior study, there is no significant interval change. /[place]
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
--- NOTE | 2025-07-27 16:55 | PN ---
PROGRESS NOTE PROBLEM LIST: [Unstable angina Acute combined congestive heart failure moderate present on admission Diabetes mellitus Dyslipidemia Hypertension Probable community-acquired pneumonia presenting with febrile state Leukocytosis Left main and three-vessel disease INTERIM HISTORY OF PRESENT ILLNESS: Patient has been seen by CT surgery and I appreciate their input and consultation. Plan at this time is to proceed with continue diuresis with surgical revascularization to be done prior to dismissal. Appropriate studies have been ordered. REVIEW OF SYSTEMS: No fever, headache, chest pain, abdominal pain, nausea, vomiting, or diarrhea. VITAL SIGNS Vital Signs Date Time Temp Pulse Resp B/P (MAP) Pulse Ox O2 Delivery O2 Flow Rate FiO2 07/27/25 16:35 97.5 85 16 139/81 98 Room Air 07/27/25 10:10 0 21 Laboratory Tests 07/27/25 03:47 LABS/MEDS Laboratory Tests Test 07/26/25 20:09 07/27/25 00:30 07/27/25 00:47 07/27/25 03:47 Whole Blood Glucose 221 MG/DL (70-110) #H 324 MG/DL (70-110) H Blood Gas Specimen Type Arterial Arterial Blood pH 7.527 (7.350-7.450) Arterial Blood Partial Pressure CO2 30 mmHg (35-48) L Arterial Blood Partial Pressure O2 81.9 mmHg (83.0-108.0) L Arterial Blood HCO3 24.6 mmol/L (21.0-28.0) Arterial Blood Oxygen Saturation 97.2 % (94.0-98.0) Arterial Blood Base Excess 2.8 mmol/L (-2.0-3.0) Blood Gas Temperature 37.0 CELSIUS (35.5-37.0) Blood Gas Vent Mode RA (ROOM AIR) FiO2 21.0 % Blood Gas Specimen Comment SWITCHMAN, RB White Blood Count 10.1 K/uL (4.8-10.8) Red Blood Count 3.64 MIL/uL (4.50-6.20) L Hemoglobin 9.9 g/dL (14.0-18.0) L Hematocrit 29.8 % (42-54) L Mean Corpuscular Volume 81.9 fL (79-99) Mean Corpuscular Hemoglobin 27.2 pg (27.0-33.0) Mean Corpuscular Hemoglobin Concent 33.2 g/dL (32.0-36.0) Red Cell Distribution Width 13.7 % (11.0-15.5) Platelet Count 522 K/uL (130-400) H Mean Platelet Volume 8.9 fL (7.5-10.5) Immature Granulocyte % (Auto) 0.6 % (0-1) Neutrophils (%) (Auto) 74.6 % (40.0-77.0) Lymphocytes (%) (Auto) 14.5 % (21.0-51.0) L Monocytes (%) (Auto) 5.7 % (3.0-13.0) Eosinophils (%) (Auto) 4.1 % (0.0-8.0) Basophils (%) (Auto) 0.5 % (0.0-5.0) Neutrophils # (Auto) 7.6 K/uL (1.8-7.7) Lymphocytes # (Auto) 1.5 K/uL (1.0-4.8) Monocytes # (Auto) 0.6 K/uL (0.1-1.0) Eosinophils # (Auto) 0.42 K/uL (0.00-0.70) Basophils # (Auto) 0.05 K/uL (0.00-0.20) Absolute Immature Granulocyte (auto 0.06 K/uL (0-1) Nucleated Red Blood Cells 0.0 % (0.0-0.19) Sodium Level 137 mmol/L (136-145) Potassium Level 3.8 mmol/L (3.5-5.1) Chloride Level 102 mmol/L (101-111) Carbon Dioxide Level 28 mmol/L (21-32) Blood Urea Nitrogen 18 mg/dL (7-18) Creatinine 1.0 mg/dL (0.5-1.3) Glomerular Filtration Rate Calc 93 mL/min (>90) Random Glucose 274 mg/dL (70-105) H Total Calcium 8.0 mg/dL (8.5-10.1) L Magnesium Level 2.10 mg/dL (1.80-2.40) Test 07/27/25 05:49 07/27/25 11:10 07/27/25 16:13 Whole Blood Glucose 245 MG/DL (70-110) H 179 MG/DL (70-110) H 225 MG/DL (70-110) H Current Medications Albuterol Sulfate 1 mg ONCE ONCE IH Last administered on 07/22/25at 00:43; Start 07/22/25 at 00:30; Stop 07/22/25 at 00:31; Status DC Potassium Bicarbonate 25 meq ONCE ONCE PO Last administered on 07/22/25at 01:17; Start 07/22/25 at 01:00; Stop 07/22/25 at 01:01; Status DC Aspirin 325 mg ONCE ONCE PO Last administered on 07/22/25at 01:17; Start 07/22/25 at 01:30; Stop 07/22/25 at 01:31; Status DC Ceftriaxone Sodium 2 gm ONCE ONCE IVPB Last administered on 07/22/25at 01:39; Start 07/22/25 at 01:30; Stop 07/22/25 at 01:34; Status DC Azithromycin 250 ml @ 250 mls/hr ONCE STAT IVPB Last administered on 07/22/25at 01:39; Start 07/22/25 at 01:28; Stop 07/22/25 at 02:27; Status DC Dextrose 50 ml AD PRN IV; Start 07/22/25 at 02:00; Stop 08/21/25 at 01:59 Glucagon 1 mg AD PRN IM; Start 07/22/25 at 02:00; Stop 08/21/25 at 01:59 Insulin Human Regular INSULIN SLIDING SCAL... ACHS SQ Last administered on 07/23/25at 07:31; Start 07/22/25 at 07:30; Stop 07/23/25 at 11:28; Status DC Potassium Chloride 100 ml @ 50 mls/hr AD PRN IV Last administered on 07/23/25at 07:30; Start 07/22/25 at 02:00; Stop 08/21/25 at 01:59 Magnesium Sulfate 50 ml @ 0 mls/hr PROTOCOL PRN IV Last administered on 07/25/25at 05:48; Start 07/22/25 at 02:00; Stop 08/21/25 at 01:59 Acetaminophen 650 mg Q6H PRN PO; Start 07/22/25 at 02:00; Stop 08/21/25 at 01:59 Lactulose 20 gm Q6H PRN PO; Start 07/22/25 at 02:00; Stop 08/21/25 at 01:59 Ondansetron HCl 4 mg Q6H PRN IVP; Start 07/22/25 at 02:00; Stop 08/21/25 at 01:59 Clonidine HCl 0.1 mg Q6H PRN PO; Start 07/22/25 at 02:00; Stop 08/21/25 at 01:59 Labetalol HCl 10 mg Q2H PRN IV; Start 07/22/25 at 02:00; Stop 08/21/25 at 01:59 Furosemide 20 mg ONCE ONCE IV Last administered on 07/22/25at 03:01; Start 07/22/25 at 03:00; Stop 07/22/25 at 03:01; Status DC Benzonatate 100 mg Q8H PRN PO; Start 07/22/25 at 03:30; Stop 08/21/25 at 03:29 Nitroglycerin 0.4 mg AD PRN SL; Start 07/22/25 at 03:30; Stop 08/21/25 at 03:29 Albuterol 1 udvial [id number] IH Last administered on 07/23/25at 18:38; Start 07/22/25 at 06:00; Stop 07/23/25 at 23:00; Status DC Ceftriaxone Sodium 2 gm Q24H IVPB Last administered on 07/24/25at 02:08; Start 07/23/25 at 02:00; Stop 07/24/25 at 12:27; Status DC Azithromycin 250 ml @ 250 mls/hr Q24H IVPB Last administered on 07/27/25at 01:00; Start 07/23/25 at 02:00; Stop 07/27/25 at 12:34; Status DC Metoprolol Tartrate 12.5 mg BID PO Last administered on 07/23/25at 09:08; Start 07/22/25 at 03:30; Stop 07/23/25 at 12:00; Status DC Atorvastatin Calcium 80 mg HS PO Last administered on 07/26/25at 21:18; Start 07/22/25 at 03:30; Stop 08/21/25 at 03:29 Furosemide 20 mg DAILY IV; Start 07/23/25 at 09:00; Stop 07/22/25 at 07:47; Status DC Aspirin 81 mg DAILY PO Last administered on 07/27/25at 09:20; Start 07/23/25 at 09:00; Stop 08/22/25 at 08:59 Iohexol 75 ml STK-MED ONCE IV; Start 07/22/25 at 06:03; Stop 07/22/25 at 06:04; Status DC Heparin Sodium/ Dextrose 250 ml @ 0 mls/hr PROTOCOL IV Last administered on 07/24/25at 02:09; Start 07/22/25 at 07:30; Stop 07/24/25 at 12:33; Status DC Furosemide 20 mg BID IV Last administered on 07/24/25at 20:24; Start 07/22/25 at 09:00; Stop 07/25/25 at 08:23; Status DC Heparin Sodium (Porcine) 5,000 unit STK-MED ONCE .ROUTE; Start 07/22/25 at 10:44; Stop 07/22/25 at 10:44; Status DC Heparin Sodium (Porcine) 4,000 unit ONCE ONCE IV Last administered on 07/23/25at 00:07; Start 07/22/25 at 23:30; Stop 07/22/25 at 23:36; Status DC Amlodipine Besylate 2.5 mg DAILY PO Last administered on 07/27/25at 09:21; Start 07/24/25 at 09:00; Stop 08/23/25 at 08:59 Miscellaneous Medication 80 mg DAILY PO; Start 07/24/25 at 09:00; Stop 07/23/25 at 11:30; Status DC Insulin Glargine 20 units HS SQ Last administered on 07/26/25at 21:18; Start 07/23/25 at 21:00; Stop 08/22/25 at 20:59 Insulin Human Isoph/Insulin Regular 20 unit BIDAC SQ Last administered on 07/27/25at 16:26; Start 07/23/25 at 16:30; Stop 08/22/25 at 16:29 Metoprolol Tartrate 25 mg BID PO Last administered on 07/24/25at 20:23; Start 07/23/25 at 21:00; Stop 07/25/25 at 08:28; Status DC Metoprolol Tartrate 12.5 mg ONCE ONCE PO Last administered on 07/23/25at 13:03; Start 07/23/25 at 12:00; Stop 07/23/25 at 12:08; Status DC Pantoprazole Sodium 40 mg DAILY IVP Last administered on 07/27/25at 09:19; Start 07/24/25 at 09:00; Stop 08/23/25 at 08:59 Potassium Chloride 20 meq STK-MED ONCE PO Last administered on 07/23/25at 21:07; Start 07/23/25 at 20:56; Stop 07/23/25 at 20:57; Status DC Insulin Human Regular INSULIN SLIDING SCAL... Q6H6 SQ Last administered on 07/27/25at 16:18; Start 07/24/25 at 00:00; Stop 08/23/25 at 00:00 Potassium Chloride 20 meq AD PRN PO Last administered on 07/27/25at 05:58; Start 07/23/25 at 21:30; Stop 08/22/25 at 21:29 Potassium Chloride 20 meq AD PRN PO Last administered on 07/26/25at 08:48; Start 07/23/25 at 21:30; Stop 08/22/25 at 21:29 Piperacillin Sod/ Tazobactam Sod 3.375 gm Q8H IVPB; Start 07/24/25 at 12:30; Stop 07/24/25 at 12:41; Status DC Sodium Chloride 50 ml AD IV; Start 07/24/25 at 12:30; Stop 07/24/25 at 12:37; Status DC Enoxaparin Sodium 40 mg DAILY SQ Last administered on 07/27/25at 09:20; Start 07/25/25 at 09:00; Stop 08/24/25 at 08:59 Piperacillin Sod/ Tazobactam Sod 3.375 gm Q8H IVPB Last administered on 07/27/25at 12:32; Start 07/24/25 at 13:00; Stop 08/03/25 at 12:59 Sodium Chloride 4 ml STK-MED ONCE IH Last administered on 07/24/25at 14:23; Start 07/24/25 at 13:43; Stop 07/24/25 at 13:44; Status DC Sodium Chloride 4 ml STK-MED ONCE IH Last administered on 07/24/25at 20:01; Start 07/24/25 at 18:07; Stop 07/24/25 at 18:07; Status DC Furosemide 40 mg DAILY PO Last administered on 07/26/25at 08:45; Start 07/25/25 at 09:00; Stop 07/27/25 at 07:45; Status DC Losartan Potassium 50 mg DAILY PO Last administered on 07/26/25at 08:45; Start 07/25/25 at 09:00; Stop 07/27/25 at 09:16; Status DC Potassium Chloride 20 meq Q3H3 PO Last administered on 07/25/25at 12:05; Start 07/25/25 at 09:00; Stop 07/25/25 at 15:00; Status DC Metoprolol Tartrate 50 mg BID PO Last administered on 07/26/25at 21:18; Start 07/25/25 at 09:00; Stop 07/27/25 at 09:16; Status DC Sodium Chloride 500 ml @ 0 mls/hr Q0M IV; Start 07/25/25 at 09:00; Stop 08/24/25 at 08:59 Lidocaine HCl 20 ml STK-MED ONCE .ROUTE; Start 07/26/25 at 14:31; Stop 07/26/25 at 14:31; Status DC Iohexol 35,000 mg STK-MED ONCE IV; Start 07/26/25 at 14:31; Stop 07/26/25 at 14:31; Status DC Heparin Sodium (Porcine) 10,000 unit STK-MED ONCE .ROUTE; Start 07/26/25 at 14:31; Stop 07/26/25 at 14:31; Status DC Heparin Sodium/ Sodium Chloride 1,000 ml @ As Directed STK-MED ONCE IV; Start 07/26/25 at 14:31; Stop 07/26/25 at 14:31; Status DC Nitroglycerin 50 mg STK-MED ONCE .ROUTE; Start 07/26/25 at 14:31; Stop 07/26/25 at 14:31; Status DC Fentanyl Citrate 100 mcg STK-MED ONCE .ROUTE; Start 07/26/25 at 14:54; Stop 07/26/25 at 14:54; Status DC Midazolam HCl 2 mg STK-MED ONCE .ROUTE; Start 07/26/25 at 14:54; Stop 07/26/25 at 14:54; Status DC Sodium Chloride 1,000 ml @ 100 mls/hr Q10H IV Last administered on 07/26/25at 16:53; Start 07/26/25 at 16:00; Stop 07/26/25 at 18:59; Status DC Furosemide 40 mg BID IV Last administered on 07/27/25at 09:20; Start 07/27/25 at 09:00; Stop 08/26/25 at 08:59 Losartan Potassium 100 mg DAILY PO; Start 07/28/25 at 09:00; Stop 08/27/25 at 08:59 Metoprolol Tartrate 75 mg BID PO; Start 07/27/25 at 21:00; Stop 08/26/25 at 20:59 PHYSICAL EXAMINATION: GENERAL: No acute distress. HEENT: Normocephalic, atraumatic. CARDIAC: Positive S1 and S2. No murmurs. LUNGS: Clear to auscultation bilaterally. ABDOMEN: Bowel sounds present, soft, nontender. EXTREMITIES: No edema bilaterally. NEUROLOGIC: Cranial nerves 2-12 grossly intact. PSYCHIATRIC: Calm. TELEMETRY: Sinus rhythm ASSESSMENT: Unstable angina Acute combined congestive heart failure moderate present on admission Diabetes mellitus Dyslipidemia Hypertension Probable community-acquired pneumonia presenting with febrile state Leukocytosis Left main and three-vessel disease were then occluded mid RCA with [id number] and wpthi-[id number] collaterals as well as a 99% stenosis of ostial left circumflex and critical disease involving mid LAD PLAN: Adjustments have been made to patient's antihypertensives and cardiac meds for guideline directed medical therapy optimization. We will increase beta blockade and ARB. Continue with IV diuresis. Await results of carotid Doppler studies and pulmonary function test. Surgical revascularization prior to dismissal. We will continue to follow closely. BLU MAYNARD MD Jul 27, 2025 16:54
[2025-07-28] VITALS (41 sets, daily range): BP systolic 72–156; BP diastolic 40–88; PULSE 77–109; RESP 11–42; TEMP 97.5–99; O2SAT 100
--- NOTE | 2025-07-28 00:05 | HMCIMG ---
EXAMINATION: DUPLEX ULTRASOUND EXAMINATION OF THE BILATERAL CAROTID AND VERTEBRAL ARTERIES. CLINICAL HISTORY: Pre-operative evaluation for CABG. COMPARISON: None provided. TECHNIQUE: Real-time ultrasound scan of the bilateral carotid and vertebral arteries, 2-D grayscale, with color Doppler flow and spectral waveform analysis. FINDINGS: Color and spectral Doppler interrogation of the carotid vessels on the right demonstrate peak systolic velocities as follows: CCA (Proximal and distal): 102 and 88 cm/s respectively. Bulb: 62 cm/s. ECA: 102 cm/s. ICA (Proximal, mid, and distal): 88, 81, and 85 cm/s respectively. Vertebral artery demonstrates antegrade flow: 48 cm/s. Right ICA/CCA ratio: 1.0 Peak systolic velocities on the left are as follows: CCA (Proximal and distal): 93 and 93 cm/s respectively. Bulb: 79 cm/s. ECA: 113 cm/s. ICA (Proximal, mid, and distal): 105, 90, and 98 cm/s respectively. Vertebral artery demonstrates antegrade flow: 40 cm/s. Left ICA/CCA ratio: 1.1 Both the common carotid arteries and their branches reveal mild intimal thickening. There are small, calcified plaques in the bilateral carotid bulb without significant stenosis. IMPRESSION: Mild intimal thickening in the bilateral carotid arteries and their branches. Small calcified plaques in the bilateral carotid bulb without significant stenosis. There is no significant flow limiting lesions in the remainder of the arteries. /[place]
[2025-07-28 04:05] LABS: IMMATURE GRANULOCYTE ABSOLUTE 0.10 K/uL (0-1); NUCLEATED RED BLOOD CELLS 0.0 % (0.0-0.19); PLATELET COUNT (AUTO) 514 K/uL (130-400); RED BLOOD CELL COUNT(AUTO) 3.72 MIL/uL (4.50-6.20); RED CELL DISTRIBUTION WIDTH 13.5 % (11.0-15.5); WHITE BLOOD COUNT (AUTO) 10.8 K/uL (4.8-10.8)
[2025-07-28 04:17] LABS: CREATININE 1.0 mg/dL (0.5-1.3); GLOMERULAR FILTR. RATE CALC 93.0 mL/min (>90); GLUCOSE,RANDOM 184.0 mg/dL (70-105); SODIUM SERUM 139.0 mmol/L (136-145); UREA NITROGEN, BLOOD 16.0 mg/dL (7-18)
[2025-07-28 04:21] LABS: ASPARTATE AMINOTRANSFERASE 45.0 U/L (10-37); LDL DIRECT 108.0 mg/dL (0-99); TOTAL PROTEIN, SERUM 6.2 g/dL (6.0-8.3)
[2025-07-28 04:26] LABS: INR 1.03 (0.85-1.15)
--- NOTE | 2025-07-28 09:31 | EKG ---
[facility] Test Date: 2025-07-28 Test Time: 07:09:24 Pat Name: ADI MENON Department: [facility] Room: 220 1 Gender: M Outsole Flexer: [id number] : 1980 Requested By: NII JACQUES Order Number: [id number] Reading MD: Washington Mancuso Measurements Intervals [place] Rate: 81 P: 67 MA: 160 QRS: 63 QRSD: 99 T: 28 QT: 397 QTc: 460 Interpretive Statements Sinus rhythm Probable left atrial enlargement ST elev, probable normal early repol pattern Compared to ECG 07/22/2025 16:26:18 ST (T wave) deviation now present Electronically Signed On 07-28-2025 15:35:16 CDT by Washington Mancuso Please click the below link to view image of tracing.
[2025-07-28] MEDS ORDERED: LIDOCAINE 2G/250ML 250 ML IV ONE (15:11)
[2025-07-28] MEDS ORDERED: NOREPINEPHRIN 8MG/250ML NS 250 ML IV PRN (15:30)
[2025-07-28] MEDS ORDERED: HEParin-NS 1,000 UNIT/500 ML 500 ML IV ONE (15:33)
[2025-07-28] MEDS ORDERED: PAPAVERINE HCL 30 MG/ML 2ML VIAL ONE (15:33)
[2025-07-28] MEDS ORDERED: NITROGLYCERIN 50MG/D5W 250ML 1 BOT ONE (15:36)
[2025-07-28] MEDS ORDERED: SODIUM BICARB 50MEQ 50ML VIAL 200 ML ONE (15:52)
[2025-07-28] MEDS ORDERED: LIDOCAINE PF 100MG/5ML (2%) SYRINGE 5ML ONE (15:52)
[2025-07-28] MEDS ORDERED: PROTamine SULFate 10 MG/ML 25ML VIAL IV ONE ×2 (15:52→18:26)
[2025-07-28] MEDS ORDERED: NOREPINEPHRINE BITARTRATE 1 MG/1 ML ML IV ONE (15:52)
[2025-07-28] MEDS ORDERED: MIDAZOLAM HCL 1 MG/ML 2ML VIAL ONE (15:53)
[2025-07-28] MEDS ORDERED: ETOMIDATE 20MG VIAL ONE (15:58)
[2025-07-28 16:32] LABS: ABG BASE EXCESS -1.1 mmol/L (-2.0-3.0); ABG HCO3 25.0 mmol/L (21.0-28.0); ABG OXYGEN SATURATION 98.2 % (94.0-98.0); ABG PCO2 48 mmHg (35-48); ABG PH 7.339 (7.350-7.450); CARBON MONOXIDE 0.3 % (0.5-1.5); DEVICE COMMENT 1; PO2, ARTERIAL BG 133.0 mmHg (83.0-108.0); TEMPERATURE, CELSIUS BG 37.0 CELSIUS (35.5-37.0)
[2025-07-28] MEDS ORDERED: LACTULOSE 20 GM/30 ML UDCUP PO PRN (17:00)
[2025-07-28] MEDS ORDERED: NOREPINEPHRINE BITARTRATE 8 MG in DEXTROSE 5%-WATER 250 ML IV PRN (17:00)
[2025-07-28] MEDS ORDERED: MAGNESIUM 2GM PREMIX 50ML 50 ML IV PRN (17:00)
[2025-07-28] MEDS ORDERED: DEXTROSE 50%-WATER 50 ML DISP.SYRIN IV PRN (17:00)
[2025-07-28] MEDS ORDERED: GLUCAGON 1MG KIT 1 MG ML IM PRN (17:00)
[2025-07-28] MEDS ORDERED: SODIUM BICARB 50MEQ 50ML VIAL IV PRN (17:00)
[2025-07-28] MEDS ORDERED: 0.9%NACL 10ML VIAL IVP PRN (17:00)
[2025-07-28] MEDS ORDERED: CALCIUM GLUC 1GM 1 GM in 0.9%NACL 50ML 50 ML IV PRN (17:00)
[2025-07-28] MEDS ORDERED: 0.9% NACL 500ML IV.SOLN 500 ML IV SCH (17:00)
[2025-07-28] MEDS ORDERED: NITROGLYCERIN 50MG/D5W 250ML 250 BOT IV SCH (17:00)
[2025-07-28 17:05] LABS: ABG BASE EXCESS -2.0 mmol/L (-2.0-3.0); ABG HCO3 23.5 mmol/L (21.0-28.0); ABG OXYGEN SATURATION 97.3 % (94.0-98.0); ABG PCO2 43 mmHg (35-48); ABG PH 7.356 (7.350-7.450); CARBON MONOXIDE 0.3 % (0.5-1.5); DEVICE COMMENT 2; PO2, ARTERIAL BG 106.5 mmHg (83.0-108.0); TEMPERATURE, CELSIUS BG 37.0 CELSIUS (35.5-37.0)
[2025-07-28] MEDS ORDERED: ALBUTEROL INHALER 90MCG/INH IH ONE (17:06)
[2025-07-28 17:40] LABS: ABG BASE EXCESS -0.8 mmol/L (-2.0-3.0); ABG HCO3 24.4 mmol/L (21.0-28.0); ABG OXYGEN SATURATION 99.8 % (94.0-98.0); ABG PCO2 43 mmHg (35-48); ABG PH 7.377 (7.350-7.450); CARBON MONOXIDE 0.3 % (0.5-1.5); DEVICE COMMENT 3; PO2, ARTERIAL BG 396.0 mmHg (83.0-108.0); TEMPERATURE, CELSIUS BG 37.0 CELSIUS (35.5-37.0)
[2025-07-28] MEDS: HEParin-NS 1,000 UNIT/500 ML 1,000 ML IV ONE (17:55)
[2025-07-28 17:57] LABS: ABG OXYGEN SATURATION 54.9 % (94.0-98.0); BASE EXCESS,VENOUS BLOOD GAS 3.2 (-2.0-3.0); DEVICE COMMENT 3; HCO3,VENOUS BLOOD GAS 28.1 (22.0-29.0); PCO2,VENOUS BLOOD GAS 45 (38-54); PH,VENOUS BLOOD GAS 7.416 (7.320-7.430); PO2,VENOUS BLOOD GAS 31.8 mmHg (23.0-48.0); TEMPERATURE, CELSIUS BG 37.0 CELSIUS (35.5-37.0)
[2025-07-28 18:37] LABS: ABG BASE EXCESS 0.2 mmol/L (-2.0-3.0); ABG HCO3 23.9 mmol/L (21.0-28.0); ABG OXYGEN SATURATION 99.7 % (94.0-98.0); ABG PCO2 35 mmHg (35-48); ABG PH 7.458 (7.350-7.450); CARBON MONOXIDE 0.3 % (0.5-1.5); DEVICE COMMENT 5; PO2, ARTERIAL BG 363.5 mmHg (83.0-108.0); TEMPERATURE, CELSIUS BG 37.0 CELSIUS (35.5-37.0)
[2025-07-28] MEDS ORDERED: ALBUMIN (HUMAN) 5% 250 ML IV ONE (18:56)
[2025-07-28 19:01] LABS: ABG BASE EXCESS 1.9 mmol/L (-2.0-3.0); ABG HCO3 25.4 mmol/L (21.0-28.0); ABG OXYGEN SATURATION 99.1 % (94.0-98.0); ABG PCO2 34 mmHg (35-48); ABG PH 7.487 (7.350-7.450); CARBON MONOXIDE 0.3 % (0.5-1.5); DEVICE COMMENT 5; PO2, ARTERIAL BG 189.2 mmHg (83.0-108.0); TEMPERATURE, CELSIUS BG 37.0 CELSIUS (35.5-37.0)
[2025-07-28 19:37] LABS: ABG BASE EXCESS 2.8 mmol/L (-2.0-3.0); ABG HCO3 26.3 mmol/L (21.0-28.0); ABG OXYGEN SATURATION 98.8 % (94.0-98.0); ABG PCO2 36 mmHg (35-48); ABG PH 7.483 (7.350-7.450); CARBON MONOXIDE 0.3 % (0.5-1.5); DEVICE COMMENT ALINE RN JULIA; PO2, ARTERIAL BG 213.7 mmHg (83.0-108.0); TEMPERATURE, CELSIUS BG 37.0 CELSIUS (35.5-37.0); VENT MODE, BG SIMV PS10 (ROOM AIR)
[2025-07-28 19:55] LABS: NUCLEATED RED BLOOD CELLS 0.0 % (0.0-0.19); PLATELET COUNT (AUTO) 416.0 K/uL (130-400); RED BLOOD CELL COUNT(AUTO) 2.77 MIL/uL (4.50-6.20); RED CELL DISTRIBUTION WIDTH 13.7 % (11.0-15.5); WHITE BLOOD COUNT (AUTO) 27.5 K/uL (4.8-10.8)
[2025-07-28] MEDS: ALBUMIN (HUMAN) 5% 250 ML IV PRN (19:58)
[2025-07-28] MEDS: INSULIN REGULAR, HUMAN 3ML 100 UNIT in 0.9%NACL 100ML 99 ML IV SCH (19:59)
[2025-07-28] MEDS: 0.9%NACL 1000ML 1,000 ML IV SCH (19:59)
[2025-07-28] MEDS: FAMOTIDINE 20MG VIAL IV SCH (20:01)
[2025-07-28] MEDS: ASPIRIN 81MG CHEW TAB NG ONE (20:02)
[2025-07-28 20:09] LABS: INR 1.25 (0.85-1.15)
[2025-07-28 20:10] LABS: CREATININE 0.9 mg/dL (0.5-1.3); GLOMERULAR FILTR. RATE CALC 106.0 mL/min (>90); GLUCOSE,RANDOM 232.0 mg/dL (70-105); PHOSPHORUS 6.3 mg/dL (2.5-4.9); SODIUM SERUM 143.0 mmol/L (136-145); UREA NITROGEN, BLOOD 16.0 mg/dL (7-18)
--- NOTE | 2025-07-28 20:17 | EKG ---
[facility] Test Date: 2025-07-28 Test Time: 19:40:52 Pat Name: ADI MENON Department: [facility] Room: 207 Gender: M Clerk Of Scales: [id number] : 1980 Requested By: NII JACQUES Order Number: [id number] Reading MD: Wiley Felder Measurements Intervals [place] Rate: 98 P: 70 UT: 155 QRS: 71 QRSD: 92 T: -15 QT: 366 QTc: 468 Interpretive Statements Sinus rhythm ST elev, probable normal early repol pattern Compared to ECG 07/28/2025 07:09:24 No significant changes Electronically Signed On 07-31-2025 21:32:39 CDT by Wiley Felder Please click the below link to view image of tracing.
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
[2025-07-28 20:37] LABS: ABG BASE EXCESS 2.2 mmol/L (-2.0-3.0); ABG HCO3 26.0 mmol/L (21.0-28.0); ABG OXYGEN SATURATION 99.3 % (94.0-98.0); ABG PCO2 37 mmHg (35-48); ABG PH 7.469 (7.350-7.450); CARBON MONOXIDE 0.3 % (0.5-1.5); DEVICE COMMENT ALINE RN JULIA; PO2, ARTERIAL BG 488.1 mmHg (83.0-108.0); TEMPERATURE, CELSIUS BG 37.0 CELSIUS (35.5-37.0); VENT MODE, BG SIMV PS10 (ROOM AIR)
--- NOTE | 2025-07-28 20:54 | HMCIMG ---
EXAM: CR Chest, 2 View. CLINICAL HISTORY: s/p CABG COMPARISON: None provided. FINDINGS: LUNGS: Endotracheal tube in the thoracic inlet. It should be repositioned Patchy left lower lobe infiltrate PLEURAL SPACES: No pleural effusion or pneumothorax. MEDIASTINUM: The cardiomediastinal silhouette is within normal limits. BONES: No acute osseous abnormality. IMPRESSION: 1. Endotracheal tube in the thoracic inlet. It should be repositioned 2. Patchy left lower lobe infiltrate /[place]
[2025-07-28 21:32] LABS: ABG BASE EXCESS 0.4 mmol/L (-2.0-3.0); ABG HCO3 24.8 mmol/L (21.0-28.0); ABG OXYGEN SATURATION 98.9 % (94.0-98.0); ABG PCO2 39 mmHg (35-48); ABG PH 7.422 (7.350-7.450); CARBON MONOXIDE 0.3 % (0.5-1.5); DEVICE COMMENT ALINE RN JULIA; PO2, ARTERIAL BG 254.8 mmHg (83.0-108.0); TEMPERATURE, CELSIUS BG 37.0 CELSIUS (35.5-37.0); VENT MODE, BG SIMV PS10 (ROOM AIR)
--- NOTE | 2025-07-28 21:55 | NUR ---
2129 - PT ARRIVED 1929 WITH OR TEAM, AND ANESTHESIOLOGIST CLARISSA, VS STABLE ON ARRIVAL CABG X3 ON PUMP BY DR. MARTELL. SINUS RHYTHM 94, B/P A LINE 105/43, 12, 100% ON VENTILATOR 100% - SIMV, FIO2 100%, 12, 5, 500. ETT TUBE WAS REPOSITIONED AND DR. ROMO XRAY WAS NOTED REPORTED XRAY DIDNT WANT A RETAKE. 25 AT THE LIP 7.5 ETT TUBE. CHEST TUBS IN PLACE PATENT, MEEKS CLEAR URINE AND GOOD OUTPUT, ON EPI AND LEVO DRIPS TITRATION, AMICAR, INSULIN DRIP, SVR LOW 300S REPORTED TO ADE AND HGB 7.6 PT PALE WELL, HYPOVOLEMIA NOTED 1 BOLUS OF ALBUMIN GIVEN, B/P STABLE 100S. NO NEW ORDERS CONT WITH PLAN OF CARE. NOTED. ALERT. AWAKE AND INTERVALS RE-DIRECTABLE FAMILY VISITED AND UPDATED
[2025-07-28 22:34] LABS: ABG BASE EXCESS 2.5 mmol/L (-2.0-3.0); ABG HCO3 25.5 mmol/L (21.0-28.0); ABG OXYGEN SATURATION 98.5 % (94.0-98.0); ABG PCO2 33 mmHg (35-48); ABG PH 7.507 (7.350-7.450); CARBON MONOXIDE 0.3 % (0.5-1.5); DEVICE COMMENT ALINE RN JULIA; PO2, ARTERIAL BG 151.7 mmHg (83.0-108.0); TEMPERATURE, CELSIUS BG 37.0 CELSIUS (35.5-37.0); VENT MODE, BG SIMV PS10 (ROOM AIR)
[2025-07-28 23:26] LABS: ABG BASE EXCESS 2.9 mmol/L (-2.0-3.0); ABG HCO3 27.2 mmol/L (21.0-28.0); ABG OXYGEN SATURATION 98.3 % (94.0-98.0); ABG PCO2 40 mmHg (35-48); ABG PH 7.448 (7.350-7.450); CARBON MONOXIDE 0.3 % (0.5-1.5); DEVICE COMMENT ALINE JULIA; PO2, ARTERIAL BG 146.0 mmHg (83.0-108.0); TEMPERATURE, CELSIUS BG 37.0 CELSIUS (35.5-37.0); VENT MODE, BG SIMV PS10 (ROOM AIR)
--- NOTE | 2025-07-28 23:30 | NUR ---
2330 - extubated after being on resp 4 and fio2 40% minimum vent settings and alert following commands. NIF = -26, pulled 1900 TV, positive air leak. pt was extubated. oral care and suctioning after extubated. placed on aerosol mask in place 10 liters 40%- tolerated well
[2025-07-29] VITALS (82 sets, daily range): BP systolic 73–151; BP diastolic 39–92; PULSE 86–104; RESP 6–55; TEMP 98–99; O2SAT 95–100
[2025-07-29 00:56] LABS: ABG BASE EXCESS 2.0 mmol/L (-2.0-3.0); ABG HCO3 26.6 mmol/L (21.0-28.0); ABG OXYGEN SATURATION 97.4 % (94.0-98.0); ABG PCO2 42 mmHg (35-48); ABG PH 7.420 (7.350-7.450); CARBON MONOXIDE 0.3 % (0.5-1.5); DEVICE COMMENT ALINE RN JULIA; PO2, ARTERIAL BG 115.9 mmHg (83.0-108.0); TEMPERATURE, CELSIUS BG 37.0 CELSIUS (35.5-37.0); VENT MODE, BG CAFM (ROOM AIR)
[2025-07-29 04:12] LABS: IMMATURE GRANULOCYTE ABSOLUTE 0.22 K/uL (0-1); NUCLEATED RED BLOOD CELLS 0.0 % (0.0-0.19); PLATELET COUNT (AUTO) 447 K/uL (130-400); RED BLOOD CELL COUNT(AUTO) 2.66 MIL/uL (4.50-6.20); RED CELL DISTRIBUTION WIDTH 13.9 % (11.0-15.5); WHITE BLOOD COUNT (AUTO) 18.9 K/uL (4.8-10.8)
[2025-07-29 04:37] LABS: ASPARTATE AMINOTRANSFERASE 38.0 U/L (10-37); CREATININE 1.3 mg/dL (0.5-1.3); GLOMERULAR FILTR. RATE CALC 68.0 mL/min (>90); GLUCOSE,RANDOM 195.0 mg/dL (70-105); PHOSPHORUS 7.1 mg/dL (2.5-4.9); SODIUM SERUM 144.0 mmol/L (136-145); TOTAL PROTEIN, SERUM 5.3 g/dL (6.0-8.3); UREA NITROGEN, BLOOD 21.0 mg/dL (7-18)
--- NOTE | 2025-07-29 05:32 | HMCIMG ---
EXAM: CR Chest, 1 views. CLINICAL HISTORY: Cough. COMPARISON: None provided. FINDINGS: The lungs show no infiltrate or other acute findings. No pleural effusion or pneumothorax. The cardiomediastinal silhouette is within normal limits. No acute osseous abnormality. IMPRESSION: 1. No acute cardiopulmonary pathology is evident. /[place]
--- NOTE | 2025-07-29 06:50 | NUR ---
reported hgb 7.[address] hernadez no blood transfusion, vs stable
[2025-07-29 08:28] LABS: ABG BASE EXCESS 1.9 mmol/L (-2.0-3.0); ABG HCO3 26.1 mmol/L (21.0-28.0); ABG OXYGEN SATURATION 94.8 % (94.0-98.0); ABG PCO2 39 mmHg (35-48); ABG PH 7.440 (7.350-7.450); CARBON MONOXIDE 0.3 % (0.5-1.5); DEVICE COMMENT ALINE; PO2, ARTERIAL BG 79.5 mmHg (83.0-108.0); TEMPERATURE, CELSIUS BG 37.0 CELSIUS (35.5-37.0); VENT MODE, BG NC (ROOM AIR)
--- NOTE | 2025-07-29 10:00 | NUR ---
swan emerita catheter and arterialline were removed as per Dr. Salas's order. Procedure was tolerated by the patient.
--- NOTE | 2025-07-29 11:30 | NUR ---
Patient was gotten out of bed by P,T personnel and patient was sat up on the chair which he tolerated it .
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
--- NOTE | 2025-07-29 13:22 | HMCIMG ---
CHEST 1VW REASON: s/p CABG COMPARISON: Prior chest radiograph from 07/28/2025 is available. FINDINGS: Single view of the chest was obtained. The cardiac silhouette is within the limits of normal. Patient is status post median sternotomy with cardiac revascularization procedure with left atrial clipping. There is elevation of the right hemidiaphragm. There is mild pulmonary venous congestion. There is [place] catheter with the tip in the pulmonary outflow tract.. Mediastinum and bony thorax appear unremarkable. The bony thorax demonstrate no gross abnormality. IMPRESSION: 1. Status post median sternotomy with cardiac revascularization procedure with left atrial clinically. 2. Mild pulmonary venous congestion 3. Right internal jugular [place]av[place] catheter in place.
--- NOTE | 2025-07-29 15:23 | PN ---
[facility] CARDIOLOGY PROGRESS NOTE Date Patient Seen: Jul 29, 2025 Time of Visit: 15:14 Interval History: [ No acute events overnight , the patient is s/p 3v CABG ( MORENO-LAD , SVG -OM2, SVG-PDA) on 07-28-[address] Salas ,. the patient tolerated the procedure well with no complications , chest tubes are in and functional. Successfully extubated. ] Physical Examination: GENERAL: [No acute distress.] HEAD: [Normal with no signs of head trauma.] EYES: [PERRLA, EOMI, conjunctiva and sclera normal.] ENT: [Hearing grossly intact, normal oropharynx.] NECK: [Supple without JVD. There is no tenderness, lymphadenopathy, or masses. No thyromegaly. Normal carotid upstrokes without bruits.] LUNGS: [Clear breath sounds bilaterally. No wheezes, or rhonchi. 1 chest tube is in ] HEART: [Normal rate and rhythm. Normal S1 and S2 without mumurs, gallop or rub.] VASC: [Peripheral pulses +2 bilaterally.] ABD: [Bowel sounds normal, soft, nontender, no masses, no organomegaly. No audible bruits.] : [Not examined] LYMPH: [No lymphadenopathy noted.] EXT: [No clubbing, cyanosis or edema.] SKIN: [No rashes or lesions noted.] NEURO: [Awake, alert, and oriented x3. No focal sensory or strength deficits noted.] Laboratory: [ ] Hematology Labs: Test 07/29/25 03:51 Range/Units White Blood Count 18.9 #H 4.8-10.8 K/uL Red Blood Count 2.66 L 4.50-6.20 MIL/uL Hemoglobin 7.2 L 14.0-18.0 g/dL Hematocrit 22.6 L 42-54 % Mean Corpuscular Volume 85.0 79-99 fL Mean Corpuscular Hemoglobin 27.1 27.0-33.0 pg Mean Corpuscular Hemoglobin Concent 31.9 L 32.0-36.0 g/dL Red Cell Distribution Width 13.9 11.0-15.5 % Platelet Count 447 H 130-400 K/uL Mean Platelet Volume 9.0 7.5-10.5 fL Immature Granulocyte % (Auto) 1.2 H 0-1 % Neutrophils (%) (Auto) 92.2 H 40.0-77.0 % Lymphocytes (%) (Auto) 3.2 L 21.0-51.0 % Monocytes (%) (Auto) 3.2 3.0-13.0 % Eosinophils (%) (Auto) 0.0 0.0-8.0 % Basophils (%) (Auto) 0.2 0.0-5.0 % Neutrophils # (Auto) 17.4 H 1.8-7.7 K/uL Lymphocytes # (Auto) 0.6 L 1.0-4.8 K/uL Monocytes # (Auto) 0.6 0.1-1.0 K/uL Eosinophils # (Auto) 0.00 0.00-0.70 K/uL Basophils # (Auto) 0.04 0.00-0.20 K/uL Absolute Immature Granulocyte (auto 0.22 0-1 K/uL Nucleated Red Blood Cells 0.0 0.0-0.19 % White Cell Morphology Comment See comments Chemistry Labs: Test 07/29/25 14:07 07/29/25 03:51 07/28/25 03:27 07/27/25 19:43 Range/Units Whole Blood Glucose 191 H 70-110 MG/DL Sodium Level 144 136-145 mmol/L Potassium Level 4.4 3.5-5.1 mmol/L Chloride Level 108 101-111 mmol/L Carbon Dioxide Level 31 21-32 mmol/L Blood Urea Nitrogen 21 H 7-18 mg/dL Creatinine 1.3 0.5-1.3 mg/dL Glomerular Filtration Rate Calc 68 >90 mL/min Random Glucose 195 H 70-105 mg/dL Total Calcium 10.0 8.5-10.1 mg/dL Ionized Calcium 1.32 1.15-1.33 MMOL/L Phosphorus Level 7.1 H 2.5-4.9 mg/dL Magnesium Level 2.30 1.80-2.40 mg/dL Total Bilirubin 0.3 0.2-1.0 mg/dL Aspartate Amino Transf (AST/SGOT) 38 H 10-37 U/L Alanine Aminotransferase (ALT/SGPT) 76 12-78 U/L Alkaline Phosphatase 90 50-136 U/L Total Protein 5.3 L 6.0-8.3 g/dL Albumin 1.7 L 3.5-5.0 g/dL Triglycerides Level 174 30-200 mg/dL Cholesterol Level 182 # <200 mg/dL LDL Cholesterol 108 H 0-99 mg/dL HDL Cholesterol 28 L 29-71 mg/dL Bedside Glucose Comment Notified Nurse Coagulation Labs: Test 07/28/25 19:48 07/28/25 18:35 Range/Units Prothrombin Time 13.0 H 9.6-11.6 SEC Prothromb Time International Ratio 1.25 H 0.85-1.15 Activated Partial Thromboplast Time 28.7 26.3-35.5 SEC Kaolin Activated Coagulation Time 135 74-137 SEC Diagnostics / Radiology: [Copy/Paste Echos/Imaging Report here] Impression and Plan: Unstable angina POA Acute combined congestive heart failure moderate present on admission Diabetes mellitus Dyslipidemia Hypertension ] #CAD s/p 3v CABG ( MORENO-LAD , SVG -OM2, SVG-PDA) on 07-28-[address] Salas The patient initially presented for chest pain 2D echocardiogram was also performed in his admission revealing mild anterior and apical hypokinesis. Ejection fraction was 45% with that study. Coronary angiogram revealed severe multivessel CAD , CV surgery was consulted and is now s/p 3v CABG The patient tolerated the procedure well with no complications , chest tubes are in and functional. Successfully extubated Once chest tubes are out and deemes safe by CV surgery we will recommend initiating Plavix 75 mg daily Strict Is and Os and daily weight. Continue Lasxi 20 mg IV every 12 hrs Wean off pressors as tolerated. Thank you for this consult cardiology will continue to follow along ATTESTATION BY PHYSICIAN I have seen and examined the patient, reviewed the above documentation, participated in medical decision making, made necessary modifications, and agree with the treatment plan as documented by my mid-level provider above. MD MADYSON Del Rio JAMES R MD Jul 29, 2025 15:23
--- NOTE | 2025-07-29 16:00 | NUR ---
[facility] ICU Skin Assessment: Patient assessed by wound healing team. Patient with no wounds or skin breakdown noted. Assessment and recommendations provided to primary nurse. Education provided. Addendum: 07/29/25 at 1723 by LAUREN CARDONA RN RN/ Amended: Links added.
[2025-07-30] VITALS (35 sets, daily range): BP systolic 101–163; BP diastolic 54–86; PULSE 87–104; RESP 11–34; TEMP 97.5–98.5; O2SAT 93–97
--- NOTE | 2025-07-30 04:05 | PN ---
SUBJECTIVE: The patient is postop day #1 from a coronary artery bypass grafting. OBJECTIVE: GENERAL: The patient is extubated and off of all pressors. VITAL SIGNS: His vital signs revealed a pulse of 97, blood pressure is 142/52, and oxygen saturation is 100%. HEENT: Normocephalic, atraumatic. Extraocular movements intact. He has nasal cannula oxygen prongs under his nose. CHEST: He has a right cervical [place]-Octavio catheter reading a cardiac index of 5.7 liters per minute per meter squared. His sternal wound was bandaged. His chest tubes put out 140 mL of total output since the time of surgery. HEART: S1, S2 and tachycardic. He has a left radial art line. ABDOMEN: Soft and nontender. GENITOURINARY: He has a Meek catheter in his bladder. EXTREMITIES: He has SCDs on his lower extremities. He is paraplegic with weak lower legs; however, he can move them. ASSESSMENT AND PLAN: Status post coronary artery bypass grafting. Begin aspirin, metoprolol, Lasix. Discontinue [place]-Octavio catheter and art line. Postoperative acute pulmonary insufficiency. Wean nasal cannula oxygen, maintain oxygen saturation greater than 90% on room air. Continue incentive spirometry. Hypercholesterolemia. Lipitor 40 mg p.o. at bedtime. Low cholesterol, cardiac diet. Deep venous thrombosis prophylaxis. Continue SCDs to lower extremities. Time spent 30 minutes. The patient is critically ill in the ICU. TID: [id number] RECEIPT: [id number]
[2025-07-30 05:16] LABS: IMMATURE GRANULOCYTE ABSOLUTE 0.16 K/uL (0-1); NUCLEATED RED BLOOD CELLS 0.0 % (0.0-0.19); PLATELET COUNT (AUTO) 421 K/uL (130-400); RED BLOOD CELL COUNT(AUTO) 2.41 MIL/uL (4.50-6.20); RED CELL DISTRIBUTION WIDTH 14.3 % (11.0-15.5); WHITE BLOOD COUNT (AUTO) 18.2 K/uL (4.8-10.8)
[2025-07-30 05:37] LABS: ASPARTATE AMINOTRANSFERASE 34.0 U/L (10-37); CREATININE 1.3 mg/dL (0.5-1.3); GLOMERULAR FILTR. RATE CALC 68.0 mL/min (>90); GLUCOSE,RANDOM 111.0 mg/dL (70-105); SODIUM SERUM 138.0 mmol/L (136-145); TOTAL PROTEIN, SERUM 5.5 g/dL (6.0-8.3); UREA NITROGEN, BLOOD 23.0 mg/dL (7-18)
[2025-07-30 06:13] LABS: NUCLEATED RED BLOOD CELLS 0.0 % (0.0-0.19); PLATELET COUNT (AUTO) 425.0 K/uL (130-400); RED BLOOD CELL COUNT(AUTO) 2.34 MIL/uL (4.50-6.20); RED CELL DISTRIBUTION WIDTH 14.4 % (11.0-15.5); WHITE BLOOD COUNT (AUTO) 18.0 K/uL (4.8-10.8)
--- NOTE | 2025-07-30 09:12 | PN ---
SUBJECTIVE: The patient is postop day #2 from a coronary artery bypass grafting. The patient has been doing well; however, he was found to have a low hemoglobin of 6.4 this morning and is currently receiving a unit of packed red blood cells. OBJECTIVE: VITAL SIGNS: He is afebrile. Vital signs are stable. HEENT: Reveals normocephalic, atraumatic. He has nasal cannula oxygen prongs under his nose. He has a right cervical central venous line. He is off all pressors. CHEST: His sternal wound is bandaged. His chest tubes are in place with 180 mL of output over the last 24 hours. HEART: S1 and S2 and regular. LUNGS: Unlabored at rest, on nasal cannula oxygen. ABDOMEN: Reveals mild obesity with positive bowel sounds. GENITOURINARY: He has a Meek catheter in his bladder. EXTREMITIES: He has SCDs on his lower extremities. ASSESSMENT AND PLAN: Status post coronary artery bypass grafting. Continue aspirin. We will increase metoprolol to 25 mg twice a day and Lasix 20 mg b.i.d. Discontinue his chest tubes, Meek, and central venous line. Transfer out of the ICU. Postoperative acute pulmonary insufficiency secondary to thoracic surgery. Encouraged incentive spirometry. Wean nasal cannula oxygen; maintain oxygen saturation greater than 90% on room air. Deep venous thrombosis prophylaxis. Again, Lovenox 30 mg subcu daily. Time spent 30 minutes. The patient is critically ill in the ICU. TID: [id number] RECEIPT: [id number]
--- NOTE | 2025-07-30 09:19 | HMCIMG ---
CHEST 1VW REASON: s/p CABG COMPARISON: Prior study from 07/29/2025 is available. FINDINGS: Single view of the chest was obtained. Lungs are clear. There is mild discoid atelectasis seen in the lung bases. Heart is normal size with median sternotomy with cardiac revascularization procedure. There is left atrial clipping. The support lines including the right internal jugular vascular sheath in place.. There is no pulmonary vascular congestion. Mediastinum and bony thorax appear unremarkable. IMPRESSION: 1. Status post median sternotomy with cardiac revascularization procedure with left atrial clipping. 2. No evidence of airspace consolidation or pulmonary venous congestion 3. Atelectasis seen in the lung bases..
[2025-07-30] MEDS: ENOXAPARIN SODIUM 30 MG/0.3 ML SQ SCH (13:02)
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
[2025-07-31] VITALS (8 sets, daily range): BP systolic 113–154; BP diastolic 71–96; PULSE 84–97; RESP 16–24; TEMP 97.4–98.5; O2SAT 94–97
[2025-07-31 04:13] LABS: IMMATURE GRANULOCYTE ABSOLUTE 0.14 K/uL (0-1); NUCLEATED RED BLOOD CELLS 0.0 % (0.0-0.19); PLATELET COUNT (AUTO) 492 K/uL (130-400); RED BLOOD CELL COUNT(AUTO) 2.65 MIL/uL (4.50-6.20); RED CELL DISTRIBUTION WIDTH 14.5 % (11.0-15.5); WHITE BLOOD COUNT (AUTO) 17.7 K/uL (4.8-10.8)
[2025-07-31 04:34] LABS: ASPARTATE AMINOTRANSFERASE 35.0 U/L (10-37); CREATININE 1.2 mg/dL (0.5-1.3); GLOMERULAR FILTR. RATE CALC 75.0 mL/min (>90); GLUCOSE,RANDOM 214.0 mg/dL (70-105); SODIUM SERUM 136.0 mmol/L (136-145); TOTAL PROTEIN, SERUM 5.9 g/dL (6.0-8.3); UREA NITROGEN, BLOOD 25.0 mg/dL (7-18)
--- NOTE | 2025-07-31 08:45 | HMCIMG ---
EXAM: CR Chest, 1 View. CLINICAL HISTORY: s/p CABG COMPARISON: Radiograph dated July 30, 2025 Findings: AP view of the chest is submitted. Right IJ central venous catheter and chest tubes have been removed. Relatively unchanged bibasilar airspace disease, and a suspected small left effusion. No pneumothorax. Stable cardiomegaly. Mild central pulmonary vascular congestion. IMPRESSION: 1. Stable bibasilar airspace disease and suspected small left pleural effusion. 2. No acute cardiopulmonary findings. /[place]
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
[2025-07-31] MEDS: GABAPENTIN 300 MG CAPSULE PO SCH (13:27)
--- NOTE | 2025-07-31 16:47 | NUR ---
CM NOTE/[facility] CM spoke to patient and girlfriend at bedside regarding d/c planning. CM discussed rehab needs. Explained IRU vs SNF level of care. CM provided medicare.gov SNF and IRU list and explained in network options. Patient and girlfriend prefer placement at [facility] and [facility] as second option. CM obtained [facility] and will send referral. CM explained that placement requires insurance authorization. Patient verbalized understanding. CM to f/u. Addendum: 07/31/25 at 1649 by NANCY RODRIGUEZ CM Amended: Links added.
[2025-08-01] VITALS (8 sets, daily range): BP systolic 112–162; BP diastolic 64–82; PULSE 82–98; RESP 15–19; TEMP 97.7–98.8; O2SAT 94–97
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
[2025-08-01 04:49] LABS: IMMATURE GRANULOCYTE ABSOLUTE 0.18 K/uL (0-1); NUCLEATED RED BLOOD CELLS 0.1 % (0.0-0.19); PLATELET COUNT (AUTO) 477 K/uL (130-400); RED BLOOD CELL COUNT(AUTO) 2.52 MIL/uL (4.50-6.20); RED CELL DISTRIBUTION WIDTH 14.6 % (11.0-15.5); WHITE BLOOD COUNT (AUTO) 15.6 K/uL (4.8-10.8)
[2025-08-01 05:14] LABS: ASPARTATE AMINOTRANSFERASE 32.0 U/L (10-37); CREATININE 1.3 mg/dL (0.5-1.3); GLOMERULAR FILTR. RATE CALC 68.0 mL/min (>90); GLUCOSE,RANDOM 228.0 mg/dL (70-105); SODIUM SERUM 137.0 mmol/L (136-145); TOTAL PROTEIN, SERUM 5.9 g/dL (6.0-8.3); UREA NITROGEN, BLOOD 29.0 mg/dL (7-18)
[2025-08-01] MEDS ORDERED: PoTASSium chl 10% ELIXIR 20MEQ 20 MEQ/15 ML UDCUP PO PRN (06:30)
[2025-08-01] MEDS: PoTASSium chloRIDE 20MEQ ER 20 MEQ ERTAB PO PRN (06:34)
--- NOTE | 2025-08-01 07:00 | NUR ---
RE: Use of walker/H/H RE: H/H, do not transfuse per Dr. Taylor. In regards to use of walker, PT/OT should assess his use of walker. If he is lifting himself with his arms, he cannot use it for 6 weeks. If he is weight bearing with his legs, then he can use walker.
--- NOTE | 2025-08-01 08:30 | NUR ---
clarified Lovenox and aspirin due to hgb of 7.0 M. BRICE Gonsalves approved to administer
[2025-08-01] MEDS: FAMOTIDINE 20MG TAB PO SCH (09:31)
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
--- NOTE | 2025-08-01 13:23 | NUR ---
Dr. Yost rounded on patient made aware of consistently high glucose. placed on Lantus 20units once daily.
--- NOTE | 2025-08-01 17:23 | PN ---
[facility] CARDIOLOGY PROGRESS NOTE Date Patient Seen: Aug 01, 2025 Time of Visit: 17:17 Interval History: [ No acute events overnight , the patient is hemodynamically stable , with normal blood pressures , all chest tubes have been removed , currently denies any chest pain, palpitations, dyspnea or any other anginal equivalents. Hb 7.2 gr Physical Examination: GENERAL: No acute distress. HEAD: Normal with no signs of head trauma. EYES: PERRLA, EOMI, conjunctiva and sclera normal. NECK: Supple without JVD. There is no tenderness, lymphadenopathy, or masses. No thyromegaly. Normal carotid upstrokes without bruits. LUNGS: Slightly diminished breath sounds at the left base. There are transmitted breath sounds and diminished breath sounds at the right base. HEART: Normal rate and rhythm. Normal S1 and S2 without murmurs, gallop or rub. VASC: Peripheral pulses +2 bilaterally. EXT: No clubbing, cyanosis or edema. NEURO: Awake, alert, and oriented x3. Laboratory: [ ] Hematology Labs: Test 08/01/25 14:55 08/01/25 03:52 Range/Units Hemoglobin 7.2 L 14.0-18.0 g/dL Hematocrit 22.4 L 42-54 % White Blood Count 15.6 H 4.8-10.8 K/uL Red Blood Count 2.52 L 4.50-6.20 MIL/uL Mean Corpuscular Volume 88.1 79-99 fL Mean Corpuscular Hemoglobin 27.8 27.0-33.0 pg Mean Corpuscular Hemoglobin Concent 31.5 L 32.0-36.0 g/dL Red Cell Distribution Width 14.6 11.0-15.5 % Platelet Count 477 H 130-400 K/uL Mean Platelet Volume 9.0 7.5-10.5 fL Immature Granulocyte % (Auto) 1.2 H 0-1 % Neutrophils (%) (Auto) 80.0 H 40.0-77.0 % Lymphocytes (%) (Auto) 10.5 L 21.0-51.0 % Monocytes (%) (Auto) 6.7 3.0-13.0 % Eosinophils (%) (Auto) 1.3 0.0-8.0 % Basophils (%) (Auto) 0.3 0.0-5.0 % Neutrophils # (Auto) 12.5 H 1.8-7.7 K/uL Lymphocytes # (Auto) 1.6 1.0-4.8 K/uL Monocytes # (Auto) 1.1 H 0.1-1.0 K/uL Eosinophils # (Auto) 0.21 0.00-0.70 K/uL Basophils # (Auto) 0.04 0.00-0.20 K/uL Absolute Immature Granulocyte (auto 0.18 0-1 K/uL Nucleated Red Blood Cells 0.1 0.0-0.19 % Chemistry Labs: Test 08/01/25 15:54 08/01/25 03:52 Range/Units Whole Blood Glucose 323 H 70-110 MG/DL Sodium Level 137 136-145 mmol/L Potassium Level 3.5 3.5-5.1 mmol/L Chloride Level 100 L 101-111 mmol/L Carbon Dioxide Level 31 21-32 mmol/L Blood Urea Nitrogen 29 H 7-18 mg/dL Creatinine 1.3 0.5-1.3 mg/dL Glomerular Filtration Rate Calc 68 >90 mL/min Random Glucose 228 H 70-105 mg/dL Total Calcium 8.0 L 8.5-10.1 mg/dL Magnesium Level 2.20 1.80-2.40 mg/dL Total Bilirubin 0.3 # 0.2-1.0 mg/dL Aspartate Amino Transf (AST/SGOT) 32 10-37 U/L Alanine Aminotransferase (ALT/SGPT) 55 12-78 U/L Alkaline Phosphatase 135 50-136 U/L Total Protein 5.9 L 6.0-8.3 g/dL Albumin 1.4 L 3.5-5.0 g/dL Diagnostics / Radiology: [Copy/Paste Echos/Imaging Report here] Impression and Plan: Unstable angina POA Acute combined congestive heart failure moderate present on admission Diabetes mellitus Dyslipidemia Hypertension ] #CAD s/p 3v CABG ( MORENO-LAD , SVG -OM2, SVG-PDA) on 07-28-[address] Salas The patient initially presented for chest pain 2D echocardiogram was also performed in his admission revealing mild anterior and apical hypokinesis. Ejection fraction was 45% with that study. Coronary angiogram revealed severe multivessel CAD , CV surgery was consulted and is now s/p 3v CABG The patient tolerated the procedure well with no complications ,all chest tubes are out Overnight urine output 1245 , Net negative 667 Once Hb is stable we will recommend initiating Plavix 75 mg daily. Current HB 7.2 gr Strict Is and Os and daily weight. Continue Lasxi 20 mg PO every 12 hrs Continue lopressor 37.5 mg every 12 hrs #Hypertension Blood pressure average 150s He denies any cardiac symptoms or anginal equivalents We will continue to monitor , if blood pressure continues uncontrolled we will consider Amlodipine Thank you for this consult cardiology will continue to follow along ATTESTATION BY PHYSICIAN I have seen and examined the patient, reviewed the above documentation, participated in medical decision making, made necessary modifications, and agree with the treatment plan as documented by my mid-level provider above. MD MADYSON Del Rio JAMES R MD Aug 01, 2025 17:23
--- NOTE | 2025-08-01 21:18 | PN ---
SUBJECTIVE: Status post CABG, coursing postoperative day #4. OBJECTIVE: GENERAL: Awake, alert, sitting in a chair, comfortable, saturating at 96%. LUNGS: Clear. HEART: Regular rate and rhythm. No rubs, gallops, or murmur. EXTREMITIES: Warm and well perfused. Pulses present. ASSESSMENT: Status post coronary revascularization. PROBLEM: * Coronary artery disease. The patient is hemodynamically stable, normal sinus rhythm, on aspirin 81 mg, metoprolol 25 mg twice a day. * Fluid overload, Lasix 20 mg twice a day. Monitor intake and output. * Dyslipidemia, Lipitor 40 mg once a day. Check cholesterol levels and monitor liver enzymes. PLAN: OT, PT, cardiac rehab, discharge planning. TID: [id number] RECEIPT: [id number]
[2025-08-02] VITALS (8 sets, daily range): BP systolic 114–138; BP diastolic 62–78; PULSE 85–100; RESP 19–22; TEMP 97.6–99.2; O2SAT 94–98
[2025-08-02 05:50] LABS: ASPARTATE AMINOTRANSFERASE 44.0 U/L (10-37); CREATININE 1.2 mg/dL (0.5-1.3); GLOMERULAR FILTR. RATE CALC 75.0 mL/min (>90); GLUCOSE,RANDOM 187.0 mg/dL (70-105); SODIUM SERUM 135.0 mmol/L (136-145); TOTAL PROTEIN, SERUM 5.7 g/dL (6.0-8.3); UREA NITROGEN, BLOOD 29.0 mg/dL (7-18)
[2025-08-02 06:33] LABS: IMMATURE GRANULOCYTE ABSOLUTE 0.14 K/uL (0-1); NUCLEATED RED BLOOD CELLS 0.1 % (0.0-0.19); PLATELET COUNT (AUTO) 668 K/uL (130-400); RED BLOOD CELL COUNT(AUTO) 2.74 MIL/uL (4.50-6.20); RED CELL DISTRIBUTION WIDTH 14.5 % (11.0-15.5); WHITE BLOOD COUNT (AUTO) 13.3 K/uL (4.8-10.8)
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
[2025-08-02] MEDS ORDERED: COMPOUND IV REFRIGERATED 1 EACH IVSOLN MISC PRN (09:30)
[2025-08-02] MEDS ORDERED: COMPOUND IV MISC 1 EACH IVSOLN MISC PRN (09:30)
--- NOTE | 2025-08-02 09:37 | HMCIMG ---
EXAM: CR Chest, 1 View. CLINICAL HISTORY: s/p CABG COMPARISON: 08/01. FINDINGS: LUNGS: Mild pulmonary edema. PLEURAL SPACES: No evidence of pleural effusion or pneumothorax. MEDIASTINUM: Cardiomegaly. Status post CABG. BONES: Small left lower effusion. MISCELLANEOUS: Left atrial appendage clip. IMPRESSION: 1. Mild pulmonary edema. 2. Cardiomegaly. 3. Status post CABG. 4. Small left lower pleural effusion. 5. Left atrial appendage clip present. /[place]
--- NOTE | 2025-08-02 12:28 | HMCIMG ---
EXAM: CR Chest, 1 views. CLINICAL HISTORY: Cough. COMPARISON: None provided. FINDINGS: Bilateral perihilar congestion is noted. Basal infiltrates are noted on both lower zones. Left sided pleural effusion is noted. Cardiomegaly is noted. No acute osseous abnormality. Radio-opaque sternal sutures are noted. IMPRESSION: Bilateral perihilar congestion is noted. Basal infiltrates are noted on both lower zones. Left sided pleural effusion is noted. Cardiomegaly is noted. /[place]
--- NOTE | 2025-08-02 18:15 | NUR ---
dr. johnathon sewell at bedside, updated on pt status and all labs, as per md paige metoprolol and start pt on carvedilol 12.5mg bid, lasix to be changed to 40mg daily.
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
--- NOTE | 2025-08-02 18:35 | PN ---
[facility] CARDIOLOGY PROGRESS NOTE Date Patient Seen: Aug 02, 2025 Time of Visit: 18:19 Interval History: [ No acute events overnight , the patient currently denies any chest pain, palpitations, dyspnea or any other anginal equivalents. Overnight urine output 1250 m, with a net negative of 1362 mL, current hemoglobin 7.5 g, improved renal function creatinine of 1.2 Physical Examination: GENERAL: No acute distress. HEAD: Normal with no signs of head trauma. EYES: PERRLA, EOMI, conjunctiva and sclera normal. NECK: Supple without JVD. There is no tenderness, lymphadenopathy, or masses. No thyromegaly. Normal carotid upstrokes without bruits. LUNGS: Slightly diminished breath sounds at the left base. There are transmitted breath sounds and diminished breath sounds at the right base. HEART: Normal rate and rhythm. Normal S1 and S2 without murmurs, gallop or rub. VASC: Peripheral pulses +2 bilaterally. EXT: No clubbing, cyanosis or edema. NEURO: Awake, alert, and oriented x3. Laboratory: [ ] Hematology Labs: Test 08/02/25 05:49 Range/Units White Blood Count 13.3 H 4.8-10.8 K/uL Red Blood Count 2.74 L 4.50-6.20 MIL/uL Hemoglobin 7.5 L 14.0-18.0 g/dL Hematocrit 22.8 L 42-54 % Mean Corpuscular Volume 83.2 79-99 fL Mean Corpuscular Hemoglobin 27.4 27.0-33.0 pg Mean Corpuscular Hemoglobin Concent 32.9 32.0-36.0 g/dL Red Cell Distribution Width 14.5 11.0-15.5 % Platelet Count 668 #H 130-400 K/uL Mean Platelet Volume 8.9 7.5-10.5 fL Immature Granulocyte % (Auto) 1.0 0-1 % Neutrophils (%) (Auto) 78.7 H 40.0-77.0 % Lymphocytes (%) (Auto) 13.0 L 21.0-51.0 % Monocytes (%) (Auto) 5.2 3.0-13.0 % Eosinophils (%) (Auto) 1.9 0.0-8.0 % Basophils (%) (Auto) 0.2 0.0-5.0 % Neutrophils # (Auto) 10.5 H 1.8-7.7 K/uL Lymphocytes # (Auto) 1.7 1.0-4.8 K/uL Monocytes # (Auto) 0.7 0.1-1.0 K/uL Eosinophils # (Auto) 0.26 0.00-0.70 K/uL Basophils # (Auto) 0.03 0.00-0.20 K/uL Absolute Immature Granulocyte (auto 0.14 0-1 K/uL Nucleated Red Blood Cells 0.1 0.0-0.19 % Chemistry Labs: Test 08/02/25 16:33 08/02/25 05:06 Range/Units Whole Blood Glucose 280 H 70-110 MG/DL Sodium Level 135 L 136-145 mmol/L Potassium Level 3.8 3.5-5.1 mmol/L Chloride Level 100 L 101-111 mmol/L Carbon Dioxide Level 28 21-32 mmol/L Blood Urea Nitrogen 29 H 7-18 mg/dL Creatinine 1.2 0.5-1.3 mg/dL Glomerular Filtration Rate Calc 75 >90 mL/min Random Glucose 187 H 70-105 mg/dL Total Calcium 7.8 L 8.5-10.1 mg/dL Magnesium Level 2.20 1.80-2.40 mg/dL Total Bilirubin 0.4 0.2-1.0 mg/dL Aspartate Amino Transf (AST/SGOT) 44 H 10-37 U/L Alanine Aminotransferase (ALT/SGPT) 70 12-78 U/L Alkaline Phosphatase 135 50-136 U/L Total Protein 5.7 L 6.0-8.3 g/dL Albumin 1.3 L 3.5-5.0 g/dL Diagnostics / Radiology: [Copy/Paste Echos/Imaging Report here] Impression and Plan: Unstable angina POA Acute combined congestive heart failure moderate present on admission Diabetes mellitus Dyslipidemia Hypertension ] #CAD s/p 3v CABG ( MORENO-LAD , SVG -OM2, SVG-PDA) on 07-28-[address] Salas The patient initially presented for chest pain 2D echocardiogram was also performed in his admission revealing mild anterior and apical hypokinesis. Ejection fraction was 45% with that study. Coronary angiogram revealed severe multivessel CAD , CV surgery was consulted and is now s/p 3v CABG The patient tolerated the procedure well with no complications ,all chest tubes are out Once Hb is stable we will recommend initiating Plavix 75 mg daily. Strict Is and Os and daily weight. Continue Lasix 40 mg PO daily , ASA 81 mg daily and Atorvastatin 80 mg daily Continue carvedilol 12.5mg bid #Hypertension Blood pressure average 140s He denies any cardiac symptoms or anginal equivalents Start carvedilol 12.5 mg every 12 hours Thank you for this consult cardiology will sign off at this time the patient will follow up in clinic 1-2 weeks after discharge [place] sewell MD ATTESTATION BY PHYSICIAN I have seen and examined the patient, reviewed the above documentation, participated in medical decision making, made necessary modifications, and agree with the treatment plan as documented by my mid-level provider above. MD MADYSON Del Rio JAMES R MD Aug 02, 2025 18:35
[2025-08-03] VITALS (8 sets, daily range): BP systolic 109–125; BP diastolic 56–82; PULSE 80–93; RESP 15–20; TEMP 97.5–98.4; O2SAT 94–97
[2025-08-03 05:27] LABS: IMMATURE GRANULOCYTE ABSOLUTE 0.09 K/uL (0-1); NUCLEATED RED BLOOD CELLS 0.0 % (0.0-0.19); PLATELET COUNT (AUTO) 603 K/uL (130-400); RED BLOOD CELL COUNT(AUTO) 2.58 MIL/uL (4.50-6.20); RED CELL DISTRIBUTION WIDTH 14.2 % (11.0-15.5); WHITE BLOOD COUNT (AUTO) 12.3 K/uL (4.8-10.8)
[2025-08-03 05:56] LABS: ASPARTATE AMINOTRANSFERASE 58.0 U/L (10-37); CREATININE 1.2 mg/dL (0.5-1.3); GLOMERULAR FILTR. RATE CALC 75.0 mL/min (>90); GLUCOSE,RANDOM 277.0 mg/dL (70-105); SODIUM SERUM 135.0 mmol/L (136-145); TOTAL PROTEIN, SERUM 6.2 g/dL (6.0-8.3); UREA NITROGEN, BLOOD 31.0 mg/dL (7-18)
--- NOTE | 2025-08-03 08:24 | NUR ---
dr. tarango made aware of hgb values, as per md give 1 prbc before dc. pt may be dc to rehab center after blood transfusion. yara steel made aware of increased liver enzymes and glucose levels, new orders placed.
--- NOTE | 2025-08-03 09:00 | NUR ---
called blood bank at this time for prbc transfusion, as per blood bank prbc not ready at this time, will inform this nurse when ready.
--- NOTE | 2025-08-03 09:05 | NUR ---
consent for blood transfusion obtained from patient at this time, patient AAOX3 aware of all risk involved.
--- NOTE | 2025-08-03 11:30 | NUR ---
[facility] ICU Skin Assessment: Patient assessed by wound healing team. Patient with no wounds or skin breakdown noted. Assessment and recommendations provided to primary nurse. Education provided. Addendum: 08/03/25 at 1418 by LAUREN CARDONA RN RN/ Amended: Links added.
--- NOTE | 2025-08-03 13:45 | NUR ---
report given to srinivas collier from [facility] , all questions answered. vitals as charted. pending transfer.
--- NOTE | 2025-08-03 15:44 | NUR ---
called [facility] for eta of order picker/assembler for pt. as per donna class c truck driver will arrive within the next 15 -30minutes. pending class c truck driver .
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
--- NOTE | 2025-08-04 05:26 | HMCIMG ---
EXAM: CR Chest, 1 views. CLINICAL HISTORY: Cough. COMPARISON: None provided. FINDINGS: Mild cardiomegaly is noted. Radio-opaque sternal sutures are noted. Possible left sided pleural effusion is seen. Bilateral perihilar congestion is noted. Basal infiltrates are seen in both lower zones. No acute osseous abnormality. IMPRESSION: Mild cardiomegaly is noted. Radio-opaque sternal sutures are noted. Possible left sided pleural effusion is seen. Bilateral perihilar congestion is noted. Basal infiltrates are seen in both lower zones. As compared to previous scan radiological appearances almost same. /[place]
== END 2025-08-03 16:35 | DRG 233 ==
LOC: EDH → EDHIP 02:00 → OBSVTOIN 10:15 → 2DH 17:10 → 2CV 07-28 15:57 → 2BH 07-29 04:53
PROVIDERS: ADMIT Internal Medicine Pulmonary Disease; ATTEND Internal Medicine Pulmonary Disease
PROC: 4A023N7 Measurement of Cardiac Sampling and Pressure, Left Heart, Percutaneous Approach (ICD-10-PCS; principal; 2025-07-26)
PROC: B2111ZZ Fluoroscopy of Multiple Coronary Arteries using Low Osmolar Contrast (ICD-10-PCS; 2025-07-26)
PROC: B2151ZZ Fluoroscopy of Left Heart using Low Osmolar Contrast (ICD-10-PCS; 2025-07-26)
PROC: 021109W Bypass Coronary Artery, Two Arteries from Aorta with Autologous Venous Tissue, Open Approach (ICD-10-PCS; 2025-07-28)
PROC: 06BQ4ZZ Excision of Left Saphenous Vein, Percutaneous Endoscopic Approach (ICD-10-PCS; 2025-07-28)
PROC: 5A1221Z Performance of Cardiac Output, Continuous (ICD-10-PCS; 2025-07-28)
PROC: 0PH000Z Insertion of Rigid Plate Internal Fixation Device into Sternum, Open Approach (ICD-10-PCS; 2025-07-28)
PROC: 02100Z9 Bypass Coronary Artery, One Artery from Left Internal Mammary, Open Approach (ICD-10-PCS; 2025-07-28 15:35)
DX: I21.4 Non-ST elevation (NSTEMI) myocardial infarction (principal); I50.41 Acute combined systolic (congestive) and diastolic (congestive) heart failure; J96.01 Acute respiratory failure with hypoxia; J15.9 Unspecified bacterial pneumonia; J95.1 Acute pulmonary insufficiency following thoracic surgery; G82.20 Paraplegia, unspecified; N30.00 Acute cystitis without hematuria; D62 Acute posthemorrhagic anemia; R65.10 Systemic inflammatory response syndrome (SIRS) of non-infectious origin without acute organ dysfunction; I11.0 Hypertensive heart disease with heart failure; E11.65 Type 2 diabetes mellitus with hyperglycemia; E87.6 Hypokalemia; I25.5 Ischemic cardiomyopathy; B96.1 Klebsiella pneumoniae [K. pneumoniae] as the cause of diseases classified elsewhere; I25.10 Atherosclerotic heart disease of native coronary artery without angina pectoris; E78.00 Pure hypercholesterolemia, unspecified; Y83.8 Other surgical procedures as the cause of abnormal reaction of the patient, or of later complication, without mention of misadventure at the time of the procedure; Z79.899 Other long term (current) drug therapy; Z82.49 Family history of ischemic heart disease and other diseases of the circulatory system; Z83.3 Family history of diabetes mellitus
CPT/HCPCS: 36415; 36430; 36600; 71045; 71270; 80048; 80053; 80061; 81001; 82330; 82435; 82803; 82947; 82948; 83036; 83605; 83735; 83880; 84100; 84132; 84145; 84295; 84443; 84484; 85014; 85018; 85025; 85027; 85347; 85378; 85610; 85730; 86632; 86738; 86850; 86900; 86901; 86923; 87040; 87071; 87086; 87186; 87205; 87426; 87449; 87641; 87804; 87880; 93005; 93306; 93312; 93325; 93356; 93458; 93880; 93970; 94002; 94010; 94150; 94640; 94664; 96365; 99156; 99157; 99285; A4450; A7048; C1894; G0378; J0169; J0456; J0690; J0696; J1644; J1650; J1756; J1815; J1938; J2003; J2150; J2250; J2371; J2440; J2470; J2543; J2704; J2720; J3010; J3475; J3480; J3490; J7030; J7040; J7050; J7120; P9016; P9045; P9047; Q9967; A4215; A4649; A6204; A6206; C1713; C1760; C1776; C1887; J1308; Q9965